=== PATIENT | female | born 1945 | race Caucasian/White ===

== ENCOUNTER 2017-08-11 23:50 | Emergency (ER) | END 2017-08-12 04:19 | disposition home or self-care (01) ==

== ENCOUNTER 2018-07-11 10:15 | Emergency (ER) | payer MEDICARE, OTHER ==
[~2018-07-11] VITALS: Ht 152.4 cm; Wt 63.0 kg
[~2018-07-11 10:15] MED LIST: ATA25 PO; CLON0.2T5 PO; ERGO500013 PO; METO-429 PO; MULT1TAB59 PO; NAPR-985 PO; NIFE30TA23 PO; VALS160T20 PO; ZOLP10TA PO; [UNRECOGNIZED DRUG - CODE]; [UNRECOGNIZED DRUG - CODE] PO
[2018-07-11] MEDS ORDERED: SOD CHLORIDE 0.9% 1,000 ML IV STA ×2 (10:25→10:41)
[2018-07-11] MEDS ORDERED: ONDANSETRON 4 MG INJ IV STA (10:25)
[2018-07-11] MEDS ORDERED: MECLIZINE 12.5 MG TAB PO ONE (10:30)
[2018-07-11 10:43] VITALS: Ht 152.4 cm; Wt 63.0 kg
--- NOTE | 2018-07-11 12:27 | ERD ---
ER Documentation Chief Complaint Chief Complaint dizziness sinec this am HPI This is a 72-year-old female with a past medical history of hypertension coronary artery disease. The patient indicates that she awoke this morning feeling very lightheaded and dizzy. The patient indicated she took her antihypertensive medications last night as well as sleeping medication and believes she could have taken double the dose of her sleeping medication. She denies any chest pain. She denies a headache. She denies any nausea or vomitin g. There is no syncope or near syncope episode. The patient lives with her family who brought her to the emergency department to be further evaluated. She denies any shortness of breath at rest or exertion. ROS All systems reviewed and are negative except as per history of present illness. Medications Home Meds Discontinued Reported Medications Ergocalciferol (Vitamin D2) (VITAMIN D2) 50,000 Unit Capsule, 81989 UNIT PO QSUNDAY, CAP 08/12/17 Multivitamins* (Multivitamins*) 1 Each Tablet, 1 TAB PO DAILY, TAB 08/12/17 Clonazepam (Klonopin) 1 Mg/Tab Tab.rapdis, 1 MG PO HS 12/17/11 Nifedipine* (Nifedipine ER*) 30 Mg Tablet.sa, 30 MG PO DAILY 12/17/11 Hydroxyzine Hcl* (Atarax*) 25 Mg Tab, 25 MG PO TID 12/17/11 Metoprolol Tartrate* (Lopressor*) 50 Mg Tablet, 50 MG PO DAILY 12/17/11 Valsartan* (Diovan*) 160 Mg Tablet, 160 MG PO DAILY 12/17/11 Zolpidem Tartrate* (Ambien*) 10 Mg Tablet, 10 MG PO HS 12/17/11 Clonidine Hcl* (Clonidine Hcl*) 0.2 Mg Tablet, 0.2 MG PO DAILY 12/17/11 Aspirin (Child Aspirin) 81 Mg Tab.chew 10/09/09 Discontinued Scripts Naproxen* (Naprosyn*) 500 Mg Tablet, 500 MG PO BID PRN for PAIN AND/OR IN FLAMMATION, #30 TAB Prov:ROSSY JETER MD 08/12/17 Allergies Allergies: Coded Allergies: No Known Allergy (Unverified , 07/11/18) PMhx/Soc History of Surgery: Yes (L HIP ORIF 05/2012 AT [facility]) Anesthesia Reaction: No Hx Neurological Disorder: No Hx Respiratory Disorders: No Hx Cardiac Disorders: Yes (HTN,angiogram 2014 per family report) Hx Psychiatric Problems: No Hx Miscellaneous Medical Probl: No Hx Alcohol Use: No Hx Substance Use: No Hx Tobacco Use: No Smoking Status: Never smoker Physical Exam Vitals Vital Signs Date Temp Pulse Resp B/P (MAP) Pulse Ox O2 O2 Flow FiO2 Time Delivery Rate 07/11/18 98.1 59 18 93/54 (67) 99 10:43 Physical Exam Constitutional:Well-developed. Well-nourished. HEENT:Normocephalic. Atraumatic.Pupils were equal round reactive to light. Dry mucous membranes.No tonsillar exudates. Neck: No nuchal rigidity. No lymphadenopathy. No posterior cervical spine tenderness or step-offs. Respiratory: Not using accessory muscles of respiration.Lungs were clear to auscultation bilaterally. No rhonchi. No rales. No wheezing. Cardiovascular: Regular rate regular rhythm.No murmurs. No rubs were appreciated.S1, S2 normal. Distal pulses are palpable 2+ bilaterally. GI: Abdomen was soft. Nontender. Non Distended. No pulsatile abdominal masses or bruits. No rebound. No guarding. Bowel sounds were present and normal. Muscle skeletal: Full range of motion of both the upper and lower extremities bilaterally.Normal muscle tone.No assymetrical calf tenderness or swelling. Skin: No petechia, no purpura. No lesions on the palms or the soles of the feet. No maculopapular rash. NEURO: Patient was alert, awake, orientated x3.s She was drowsy but easily arousable. No facial droop. Gait observed and normal with no ataxia.Speech had regular rate and rhythm. No focal neurological deficits. Result Diagram: 07/11/18 1031 07/11/18 1031 Results 24 hrs Laboratory Tests Test 07/11/18 10:31 White Blood Count 7.3 10^3/ul Red Blood Count 3.93 10^6/ul Hemoglobin 11.5 g/dl Hematocrit 35.8 % Mean Corpuscular Volume 91.1 fl Mean Corpuscular Hemoglobin 29.3 pg Mean Corpuscular Hemoglobin Concent 32.1 g/dl Red Cell Distribution Width 12.5 % Platelet Count 288 10^3/UL Mean Platelet Volume 10.5 fl Immature Granulocytes % 0.000 % Neutrophils % 69.6 % Lymphocytes % 22.0 % Monocytes % 6.4 % Eosinophils % 1.6 % Basophils % 0.4 % Nucleated Red Blood Cells % 0.0 /100WBC Immature Granulocytes # 0.000 10^3/ul Neutrophils # 5.1 10^3/ul Lymphocytes # 1.6 10^3/ul Monocytes # 0.5 10^3/ul Eosinophils # 0.1 10^3/ul Basophils # 0.0 10^3/ul Nucleated Red Blood Cells # 0.0 10^3/ul Prothrombin Time 12.5 Sec Prothrombin Time Ratio 1.0 INR International Normalized Ratio 0.92 Activated Partial Thromboplast Time 29.9 Sec Sodium Level 140 mmol/L Potassium Level 4.3 mmol/L Chloride Level 104 mmol/L Carbon Dioxide Level 25 mmol/L Anion Gap 11 Blood Urea Nitrogen 27 mg/dl Creatinine 1.06 mg/dl Est Glomerular Filtrat Rate mL/min mL/min Glucose Level 96 mg/dl Calcium Level 9.6 mg/dl Total Bilirubin 0.4 mg/dl Direct Bilirubin 0.00 mg/dl Indirect Bilirubin 0.4 mg/dl Aspartate Amino Transf (AST/SGOT) 31 IU/L Alanine Aminotransferase (ALT/SGPT) 18 IU/L Alkaline Phosphatase 80 IU/L Troponin I < 0.012 ng/ml Total Protein 7.3 g/dl Albumin 4.2 g/dl Globulin 3.10 g/dl Albumin/Globulin Ratio 1.35 Current Medications Medications Dose Sig/Mauro Start Time Status Last (Trade) Ordered Route PRN Stop Time Admin Dose Reason Admin Sodium 1,000 ml @ Q1H STAT 07/11/18 DC 07/11/18 Chloride 1,000 mls/hr IV 10:25 10:54 07/11/18 11:24 Ondansetron 4 mg ONCE STAT 07/11/18 DC 07/11/18 HCl (Zofran IV 10:25 10:56 Inj) 07/11/18 10:27 Meclizine 25 mg ONCE ONCE 07/11/18 DC 07/11/18 HCl PO 10:30 10:57 (Antivert) 07/11/18 10:31 Sodium 1,000 ml @ Q1H STAT 07/11/18 DC 07/11/18 Chloride 1,000 mls/hr IV 10:41 10:57 07/11/18 11:40 Procedures/[facility] This patient was seen and evaluated by myself. The patient presented to the emergency department complaining of dizziness. My differential diagnosis included but was not limited to hypovolemia, myocardial infarction, pulmonary embolism, hypoglycemia, hypoxia, anemia, vasovagal episode, hypothyroidism, anx iety, peripheral or central vertigo. The patient was placed on a shelter monitor, continuous pulse oximetry and IV access established by nursing staff. The patient was hypotensive. 12 Lead EKG tracing ordered and reviewed by myself showed: Normal sinus rhythm of 61 bpm and no arrhythmia. MA interval normal. QRS duration normal. No ST segment elevation No ST segment depression. No changes consistent with acute ischemia. The patient had received IV fluids for hypertension. She was also given Zofran and Antivert. She was still feeling slightly dizzy and drowsy. I did feel this was an adverse effect from accidentally overdosing on her insomniac medication. In addition a CT scan of the patient's head was obtained which was reviewed by the radiologist and myself and indicate the followin. No acute intracranial hemorrhage or acute territorial infarct. 2. Age related atrophy and moderate small vessel ischemic change as described. 3. Mild bilateral carotid calcification. 4. Old bilateral nasal bone fractures. 5. No significant change The patient's son and grandson were present. I did not feel that the patient was safe to be discharged home. Her blood pressure improved after she received 2 L boluses of normal saline. She was no longer feeling dizzy. She had prerenal azotemia likely secondary to dehydration which was treated with the IV fluids. The patient was discharged home in fair condition. They were instructed to return to the emergency department at any time if there was any worsening of their condition. The patient stated they would follow up with their PCP in the next 24-48 hours to initiate a suitable medication regimen under the care of their PCP as well as to allow their PCP to monitor any drug reactions. The patient was discharged home with prescriptions after they gave informed consent to the new medication. They were also fully informed by myself on the adverse effects and adverse drug interactions in order to provide adequate safeguards to prevent possible adverse reactions to medications. Departure Diagnosis: Primary Impression: Dizziness Additional Impression: Hypotension Hypotension type: unspecified hypotension type Qualified Codes: I95.9 - Hypotension, unspecified Condition: Fair HSADIA MANN MD July 11, 2018 12:27
[2018-07-11] MEDS ORDERED: METO-336 PO (13:06)
[2018-07-11] MEDS ORDERED: AMLO5TAB4 PO (13:06)
[2018-07-11] MEDS ORDERED: LOSA25TA12 PO (13:07)
[2018-07-11] MEDS ORDERED: CLON0.5T14 PO (13:07)
[2018-07-11] MEDS ORDERED: CLON0.3T PO (13:08)
[2018-07-11] MEDS ORDERED: ZOLP10TA PO (13:08)
[2018-07-11 13:29] VITALS: BP 101/64; PULSE 74; RESP 18
== END 2018-07-11 13:30 | disposition home or self-care (01) ==
LOC: E/R 10:15
DX: I95.9 Hypotension, unspecified (principal); R40.2142 Coma scale, eyes open, spontaneous, at arrival to emergency department; R40.2362 Coma scale, best motor response, obeys commands, at arrival to emergency department; R40.2252 Coma scale, best verbal response, oriented, at arrival to emergency department; I10 Essential (primary) hypertension; I25.10 Atherosclerotic heart disease of native coronary artery without angina pectoris; Z79.82 Long term (current) use of aspirin; Z98.61 Coronary angioplasty status
CPT/HCPCS: 70450; 80053; 84484; 85025; 85610; 85730; J2405; J7030; 93005; 96374

== ENCOUNTER 2018-08-14 12:35 | Inpatient (IN) | payer MEDICARE, OTHER ==
[~2018-08-14] VITALS: Ht 157.5 cm; Wt 62.1 kg
[2018-08-14] VITALS (17 sets, daily range): BP systolic 62–112; BP diastolic 41–75; PULSE 121–150; RESP 17–24; Ht 157.5 cm; Wt 62.1 kg
[~2018-08-14 12:35] MED LIST changes: +AMLO5TAB4 PO; -ATA25 PO; -CLON0.2T5 PO; +CLON0.3T PO; +CLON0.5T14 PO; -ERGO500013 PO; +LOSA25TA12 PO; +METO-336 PO; -METO-429 PO; -MULT1TAB59 PO; -NAPR-985 PO; -NIFE30TA23 PO; -VALS160T20 PO; -[UNRECOGNIZED DRUG - CODE]; -[UNRECOGNIZED DRUG - CODE] PO
[2018-08-14] MEDS ORDERED: SOD CHLORIDE 0.9% 1,000 ML IV STA (13:13)
[2018-08-14] MEDS ORDERED: ONDANSETRON 4 MG INJ IV STA (13:13)
--- NOTE | 2018-08-14 13:24 | ERD ---
ER Documentation Chief Complaint Chief Complaint syncope after vomiting today HPI 72-year-old female history of hypertension, hyperlipidemia, paroxysmal atrial fibrillation, left bundle branch block and chronic chest pain presents to the ED via rescue ambulance for evaluation of nausea, vomiting, diarrhea and syncope. Patient was in her usual state of health until this morning when she began to experience nausea and had 3 episodes of nonbloody, nonbilious emesis and 2 episodes of watery, nonmucoid, nonbloody diarrhea. Patient with a 5 to 6-second episode of syncope after each emesis witnessed by family. No seizure activity. Denies chest pain, palpitations or shortness of breath. No abdominal pain or back pain. Denies leg pain or swelling. No cough or hemoptysis. Complains of generalized weakness and mild, generalized, pressure-like headache but no neck pain, focal weakness or numbness. Denies anorexia, weight loss, night sweats, fevers or chills. ROS All systems reviewed and are negative except as per history of present illness. Medications Home Meds Active Scripts Metoprolol Succinate* (Toprol XL*) 100 Mg Tab.sr.24h, 100 MG PO BID, #60 TAB Prov:LISA VENEGAS 08/18/18 Lisinopril* (Lisinopril*) 5 Mg Tablet, 5 MG PO DAILY, #60 TAB Prov:LISA VENEGAS 08/18/18 Dronedarone Hydrochloride* (Multaq*) 400 Mg Tablet, 400 MG PO BID WITH MEALS, #60 TAB Prov:LISA VENEGAS 08/18/18 Apixaban* (Eliquis*) 5 Mg Tablet, 2.5 MG PO BID, #60 TAB 1 Refill Prov:LISA VENEGAS 08/18/18 Reported Medications Zolpidem Tartrate* (Ambien*) 10 Mg Tablet, 10 MG PO QHS PRN for INSOMNIA, TAB 07/11/18 Clonazepam* (Clonazepam*) 0.5 Mg Tablet, 0.5 MG PO QHS PRN for ANXIETY, TAB 07/11/18 Discontinued Reported Medications Clonidine Hcl* (Clonidine Hcl*) 0.3 Mg Tablet, 0.3 MG PO BID, TAB 07/11/18 Losartan Potassium* (Losartan Potassium*) 25 Mg Tablet, 12.5 MG PO DAILY, TAB 07/11/18 Metoprolol Succinate* (Toprol XL*) 100 Mg Tab.sr.24h, 100 MG PO DAILY, #30 TAB 07/11/18 Amlodipine Besylate* (Norvasc*) 5 Mg Tablet, 5 MG PO DAILY, TAB 07/11/18 Allergies Allergies: Coded Allergies: No Known Allergy (Unverified , 08/14/18) PMhx/Soc Reviewed History of Surgery: Yes (L HIP ORIF 05/2012 AT [facility]) Anesthesia Reaction: No Hx Neurological Disorder: No Hx Respiratory Disorders: No Hx Cardiac Disorders: Yes (HTN,angiogram 2013 per family report) Hx Psychiatric Problems: No Hx Miscellaneous Medical Probl: No Hx Alcohol Use: No Hx Substance Use: No Hx Tobacco Use: No FmHx Mother and father both of [place] in her late 60s. Brother:Colon [place] Physical Exam Vitals Temp: 97.6. Pulse: 125. Respirations: 20. Blood pressure: 156/92. O2 saturation 98%. Physical Exam GENERAL: Alert. Elderly, ill-appearing in moderate distress. SKIN: Warm, dry, no rash, No petechiae. No ecchymoses or bruising. HEAD: Atraumatic NECK: Supple, nontender, full range of motion. No lymphadenopathy or masses. No JVD. Carotids are 2+ bilaterally without bruits. EYES: Pupils are equal, round and reactive to light, extraocular movements are intact, Conjunctiva, not injected, sclera anicteric. ENT: Mucous membranes are moist. Pharynx is clear without erythema or exudate. CARDIOVASCULAR: Regular rate and rhythm, S1, S2, No murmurs, rubs or gallops. No peripheral edema Pulses are 4+ in all extremities. RESPIRATORY: Breath sounds are equal bilaterally. No rales, rhonchi or wheezes. CHEST WALL: No tenderness or deformity. No ecchymosis or bruising GASTROINTESTINAL: Bowel sounds present, nondistended. Soft, nontender, no rebound or guarding. No masses or abnormal pulsations. BACK: No spinal tenderness or paraspinal muscle spasm. No costovertebral angle tenderness. MUSCULOSKELETAL: Normal ROM, no deformity. No calf swelling or tenderness, NEUROLOGIC: Alert and oriented. CN II-XII grossly intact. Normal Speech. Motor and sensory equal bilaterally.No focal neurological deficit observed. LYMPHATICS: No lymphadenopathy or lymphedema. PSYCHIATRIC: Cooperative. Appropriate mood and affect. Result Diagram: 7/3/19 0616 Results 24 hrs Laboratory Tests Test 08/14/18 13:05 08/14/18 13:21 Prothrombin Time 12.6 Sec Prothrombin Time Ratio 1.0 INR International Normalized Ratio 0.93 Activated Partial Thromboplast Time 27.1 Sec White Blood Count 9.1 10^3/ul Red Blood Count 3.88 10^6/ul Hemoglobin 11.4 g/dl Hematocrit 33.9 % Mean Corpuscular Volume 87.4 fl Mean Corpuscular Hemoglobin 29.4 pg Mean Corpuscular Hemoglobin Concent 33.6 g/dl Red Cell Distribution Width 12.4 % Platelet Count 315 10^3/UL Mean Platelet Volume 10.6 fl Immature Granulocytes % 0.200 % Neutrophils % 53.1 % Lymphocytes % 37.8 % Monocytes % 6.4 % Eosinophils % 1.8 % Basophils % 0.7 % Nucleated Red Blood Cells % 0.0 /100WBC Immature Granulocytes # 0.020 10^3/ul Neutrophils # 4.9 10^3/ul Lymphocytes # 3.4 10^3/ul Monocytes # 0.6 10^3/ul Eosinophils # 0.2 10^3/ul Basophils # 0.1 10^3/ul Nucleated Red Blood Cells # 0.0 10^3/ul Sodium Level 141 mmol/L Potassium Level 4.3 mmol/L Chloride Level 104 mmol/L Carbon Dioxide Level 25 mmol/L Anion Gap 12 Blood Urea Nitrogen 19 mg/dl Creatinine 0.84 mg/dl Est Glomerular Filtrat Rate mL/min mL/min Glucose Level 159 mg/dl Calcium Level 9.9 mg/dl Magnesium Level 1.8 mg/dl Total Bilirubin 0.4 mg/dl Direct Bilirubin 0.00 mg/dl Indirect Bilirubin 0.4 mg/dl Aspartate Amino Transf (AST/SGOT) 39 IU/L Alanine Aminotransferase (ALT/SGPT) 28 IU/L Alkaline Phosphatase 79 IU/L Troponin I < 0.012 ng/ml Total Protein 7.5 g/dl Albumin 4.4 g/dl Globulin 3.10 g/dl Albumin/Globulin Ratio 1.41 Digoxin Level < 0.4 ng/ml Current Medications Medications Dose Sig/Mauro Start Time Status Last (Trade) Ordered Route PRN Stop Time Admin Dose Reason Admin Sodium 1,000 ml @ Q1H STAT 08/14/18 DC 08/14/18 Chloride 1,000 mls/hr IV 13:13 13:13 08/14/18 14:12 Ondansetron 4 mg ONCE STAT 08/14/18 DC 08/14/18 HCl (Zofran IV 13:13 13:13 Inj) 08/14/18 13:16 DC ONCE ONCE 08/14/18 DC 08/14/18 Miscellaneous previous XX 15:30 15:30 hepa... 08/14/18 15:31 Information (* Miscellaneous Pharmacy Order) Heparin 4,000 unit ONCE ONCE 08/14/18 DC 08/14/18 Sodium IV 15:30 16:15 (Porcine) 08/14/18 15:31 (Heparin (1000 Units/ml)) Heparin 4,000 unit PER PROTOCOL 08/14/18 DC Sodium PRN IV 15:30 08/16/18 (Porcine) aPTT<47 16:53 (Heparin (1000 Units/ml)) Heparin 250 ml @ 8 PER 08/14/18 DC 08/16/18 Sodium mls/hr PROTOCOL IV 15:30 08/16/18 05:36 (Porcine) 16:53 Procedures/[facility] DOCUMENTS REVIEWED: ED nurse, prior ED and prior records. EKG: Time: 13:15. Atrial fibrillation with occasional aberrantly conducted complexes. Left bundle branch block. No acute ST elevation or depression. T wave inversions in 1, aVL V5 and V6. My Interpretation Rhythm strip interpretation: Time: 13: 21. 4 seconds of asystole followed by return to A. fib at a rate of 105. Indication: Syncope IMAGING: Chest AP portable. Cardiac silhouette is borderline enlarged. No effusions or infiltrates. No mediastinal widening. No abnormalities of the bony thorax. My interpretation MEDICAL DECISION MAKIN-year-old female history of hypertension, hyperlipidemia, paroxysmal atrial fibrillation, left bundle branch block and chronic chest pain presents to the ED via rescue ambulance for evaluation of nausea, vomiting, diarrhea and syncope. CBC to evaluate for anemia, leukocytosis and thrombocytopenia shows borderline anemia. Chemistry to evaluate for electrolyte abnormalities, renal insufficiency and hyperglycemia is unremarkable. EKG reveals left bundle branch block, atrial fibrillation with rapid ventricular response but no acute ischemic changes. troponin is not elevated. Chest x-ray is unremarkable for CHF or pneumonia. CT of the brain to evaluate for hemorrhage, infarct, mass and hydrocephalus is remarkable for chronic ischemic changes but no acute disease. In the emergency department patient had several episodes of syncope which were accompanied by periods of bradycardia and asystole Likely secondary sick sinus syndrome. Transdermal pacing patches are applied. Urgent cardiology consultation obtained in the emergency department patient will likely require urgent pacemaker placement. Admit to ICU for further evaluation and management. CALLS/CONSULTS: Time: 13:31, Cardiology, Dr. Huerta. PATIENT CARE TRANSITIONED: Time: Dr. Belcher. CRITICAL CARE TIME: Due to the high probability of sudden clinically significant hemodynamic, cardiovascular and neurologic deterioration, this patient with syncope and cardiac dysrhythmia required multiple, frequent reevaluations of vital signs and response to therapy. Additional critical care time was spent in obtaining supplemental history from family, review of prior medical records, interpretation of relevant clinical data including labs and imaging studies as well as consultation with cardiology and arranging for admission and ongoing care at the intensive care unit. TOTAL CRITICAL CARE TIME: 35 minutes not including other separately reportable procedures. Counseled patient and family regarding diagnosis, diagnostic results and plan fo r admission. Departure Diagnosis: Primary Impression: Syncope Syncope type: unspecified Qualified Codes: R55 - Syncope and collapse Additional Impressions: Sick sinus syndrome Paroxysmal atrial fibrillation with rapid ventricular response Hypertension Hypertension type: unspecified Qualified Codes: I10 - Essential (primary) hypertension Condition: Critical TINO JACKSON MD Aug 14, 2018 13:24
--- NOTE | 2018-08-14 15:17 | CONS ---
Assessment/Plan Assessment/Plan Hospital Course (Demo Recall) 1. Recurrent syncope 2. Sick sinus with tachycardia bradycardia with episode of long pause as well as tachycardia 3. Nausea vomiting 4. Hypertension 5. History of possible coronary artery disease detail is not clear 6. Abnormal EKG with left bundle branch block Recommendations: Start the patient on heparin drip for now Family to bring all the medication list to evaluate and adjust. Digoxin level will be checked to rule out this toxicity given her nausea vomiting and pauses that she has had Electrolytes will be checked intermittently cardiac enzyme will be repeated. Rule out for myocardial infarction\ Echocardiogram has been ordered thyroid function test will be checked If no reversible causes is found patient may need to have a permanent pacemaker placement. For now closely monitor and have the transcutaneous pacemaker available to if needed Hold off on beta-ricky AV rica agent blockers for now Thank you for his referral. We will continue to follow along with you BERENICE DHALIWAL MD [facility] Consultation Date/Type/Reason Admit Date/Time Date of Consultation: Aug 14, 2018 Type of Consult Cardiology Reason for Consultation SYNCOPE AFIB TACHYBRADY Requesting Provider: TINO JACKSON MD Date/Time of Note DATE: 08/14/18 TIME: 15:11 Hx of Present Illness Interventional cardiology consultation note Chief complaint: Syncope Reason for consult: Syncope tachybradycardia atrial fibrillation History of present illness: Thank you for this referral. History was obtained from the patient was a very poor historian discussion with her son and discussion with multiple physician staff and review of the old chart This is a pleasant 72-year-old [place] female with history of hypertension apparently on multiple medication who has had recurrent nausea vomiting followed by episode of unresponsiveness and syncope. She was brought into the emergency room with nausea emergency had episode of nausea vomiting followed by a systolic episode. Patient denies any chest pain or pressure to me denies any palpitation to me. Appears to have started to have symptoms starting today. Although patient and family are poor historian. Allergies: No known drug allergies Medications family does not know what medication she takes at this point Family history: No reported history of coronary artery disease Social history: Does not smoke or drink Past medical history: Hypertension, questionable history of coronary artery disease Review of system: Patient denies all others except for above-mentioned Past Medical History Home Meds Reported Medications Zolpidem Tartrate* (Ambien*) 10 Mg Tablet, 10 MG PO QHS PRN for INSOMNIA, TAB 07/11/18 Clonidine Hcl* (Clonidine Hcl*) 0.3 Mg Tablet, 0.3 MG PO BID, TAB 07/11/18 Losartan Potassium* (Losartan Potassium*) 25 Mg Tablet, 12.5 MG PO DAILY, TAB 07/11/18 Clonazepam* (Clonazepam*) 0.5 Mg Tablet, 0.5 MG PO QHS PRN for ANXIETY, TAB 07/11/18 Metoprolol Succinate* (Toprol XL*) 100 Mg Tab.sr.24h, 100 MG PO DAILY, #30 TAB 07/11/18 Amlodipine Besylate* (Norvasc*) 5 Mg Tablet, 5 MG PO DAILY, TAB 07/11/18 Allergies: Coded Allergies: No Known Allergy (Unverified , 08/14/18) Social History Smoking Status: Current every day smoker Exam/Review of Systems Vital Signs Vitals Vital Signs Date Temp Pulse Resp B/P (MAP) Pulse Ox O2 O2 Flow FiO2 Time Delivery Rate 08/14/18 104 21 129/66 99 Non 13:55 (87) Rebreather 08/14/18 2.0 13:30 08/14/18 97.6 12:51 Exam Exam General: Elderly female no acute distress HEENT: NC/AT. pupils are equal. round. NECK: no stridor. CV: Irregularly irregular. systolic murmur; no gallop or rubs. PULM: no wheezing or rhonchi. GI: SOFT, NT, ND, no rebound or guarding Extremity: trace B/L LE edema. no clubbing. neuro: awake and alert, OX2. Psych: calm and pleasant rectal: deferred EKG was personally reviewed showed atrial fibrillation rapid ventricular r esponse left bundle branch block Chest x-ray shows: Stable low lung volumes and appearance of the cardiac silhouette. There is a defibrillator pad projected over the left hemithorax. No pneumothorax or large pleural effusions. There are aortic knob calcifications. Labs Result Diagram: 08/14/18 1321 08/14/18 1321 Results 24hrs Laboratory Tests Test 08/14/18 13:21 White Blood Count 9.1 # Red Blood Count 3.88 L Hemoglobin 11.4 L Hematocrit 33.9 L Mean Corpuscular Volume 87.4 Mean Corpuscular Hemoglobin 29.4 Mean Corpuscular Hemoglobin Concent 33.6 Red Cell Distribution Width 12.4 Platelet Count 315 Mean Platelet Volume 10.6 H Immature Granulocytes % 0.200 Neutrophils % 53.1 Lymphocytes % 37.8 Monocytes % 6.4 Eosinophils % 1.8 Basophils % 0.7 Nucleated Red Blood Cells % 0.0 Immature Granulocytes # 0.020 Neutrophils # 4.9 Lymphocytes # 3.4 H Monocytes # 0.6 Eosinophils # 0.2 Basophils # 0.1 Nucleated Red Blood Cells # 0.0 Sodium Level 141 Potassium Level 4.3 Chloride Level 104 Carbon Dioxide Level 25 Anion Gap 12 Blood Urea Nitrogen 19 Creatinine 0.84 Est Glomerular Filtrat Rate mL/min Glucose Level 159 Calcium Level 9.9 Magnesium Level 1.8 Total Bilirubin 0.4 Direct Bilirubin 0.00 Indirect Bilirubin 0.4 Aspartate Amino Transf (AST/SGOT) 39 Alanine Aminotransferase (ALT/SGPT) 28 Alkaline Phosphatase 79 Troponin I < 0.012 Total Protein 7.5 Albumin 4.4 Globulin 3.10 Albumin/Globulin Ratio 1.41 BERENICE DHALIWAL MD Aug 14, 2018 15:17
[2018-08-14] MEDS ORDERED: HEPARIN 1000 UNITS/ML 10 ML INJ IV PRN (15:30)
[2018-08-14] MEDS ORDERED: HEPARIN 1000 UNITS/ML 10 ML INJ IV ONE (15:30)
--- NOTE | 2018-08-14 15:33 | HP ---
Date/Time of Note Date/Time of Note DATE: 08/14/18 TIME: 15:27 Assessment/Plan VTE Prophylaxis SCD applied (from Nsg): Yes Pharmacological prophylaxis: heparin Lines/Catheters IV Catheter Type (from Nrsg): Saline Lock Assessment/Plan Hospital Course Appeasr uncomfortable Somnulent but arousable Irreg irreg, tachy Rhonchi, phlegm Breathing comfortably Abdomen is soft, nt, nd Ext warm no edema A/P: 72 yo female with h/o hypertension and LBBB who presents with nausea syndrome complicated by syncope with pauses on telemetry Syncoep with A FIb and pauses: - Hold metoprlol - AC per Dr Huerta - Pacemaker pads Nausea: - not clear to me why. Perhaps a GI illness. Will scan head as stroke is a consideration - Observe - Sympomatic care Hypertension: - Hold home meds Result Diagram: 08/14/18 1321 08/14/18 1321 Results 24hrs Laboratory Tests Test 08/14/18 13:05 08/14/18 13:21 Prothrombin Time 12.6 Prothrombin Time Ratio 1.0 INR International Normalized Ratio 0.93 Activated Partial Thromboplast Time 27.1 White Blood Count 9.1 # Red Blood Count 3.88 L Hemoglobin 11.4 L Hematocrit 33.9 L Mean Corpuscular Volume 87.4 Mean Corpuscular Hemoglobin 29.4 Mean Corpuscular Hemoglobin Concent 33.6 Red Cell Distribution Width 12.4 Platelet Count 315 Mean Platelet Volume 10.6 H Immature Granulocytes % 0.200 Neutrophils % 53.1 Lymphocytes % 37.8 Monocytes % 6.4 Eosinophils % 1.8 Basophils % 0.7 Nucleated Red Blood Cells % 0.0 Immature Granulocytes # 0.020 Neutrophils # 4.9 Lymphocytes # 3.4 H Monocytes # 0.6 Eosinophils # 0.2 Basophils # 0.1 Nucleated Red Blood Cells # 0.0 Sodium Level 141 Potassium Level 4.3 Chloride Level 104 Carbon Dioxide Level 25 Anion Gap 12 Blood Urea Nitrogen 19 Creatinine 0.84 Est Glomerular Filtrat Rate mL/min Glucose Level 159 Calcium Level 9.9 Magnesium Level 1.8 Total Bilirubin 0.4 Direct Bilirubin 0.00 Indirect Bilirubin 0.4 Aspartate Amino Transf (AST/SGOT) 39 Alanine Aminotransferase (ALT/SGPT) 28 Alkaline Phosphatase 79 Troponin I < 0.012 Total Protein 7.5 Albumin 4.4 Globulin 3.10 Albumin/Globulin Ratio 1.41 HPI/ROS Admit Date/Time Admit Date/Time Hx of Present Illness 72 yo female with h/o hypertension and LBBB who presents wtih nausea and repeated syncope Patient in usual state of health until yesterday. She has developed severe nausea. Frequent emiesis. Family says she syncopizes for a few seconds each time she throws up. She denies any diarrhea. No fevers/chills. Just nausea. No headache. No chest pain. Clearly coughing with phlegm but denies SOB ROS Constitutional: no complaints, improved Eyes: no complaints ENT: no complaints Respiratory: no complaints Cardiovascular: no complaints Gastrointestinal: no complaints Genitourinary: no complaints Musculoskeletal: no complaints Skin: no complaints Neurologic: no complaints Endocrine: no complaints Lymphatic: no complaints Psychological: no complaints, nl mood/affect Immunologic: no complaints PMH/Family/Social Past Medical History Medical History: no pertinent history, hypertension Medications Current Medications Miscellaneous Information (* Miscellaneous Pharmacy Order) DC previous hepa... ONCE ONCE XX ; Start 08/14/18 at 15:30; Stop 08/14/18 at 15:31 Heparin Sodium (Porcine) (Heparin (1000 Units/ml)) 4,000 unit ONCE ONCE IV ; Start 08/14/18 at 15:30; Stop 08/14/18 at 15:31 Heparin Sodium (Porcine) (Heparin (1000 Units/ml)) 4,000 unit PER PROTOCOL PRN IV aPTT<47; Start 08/14/18 at 15:30; Status UNV Heparin Sodium (Porcine) 250 ml @ 8 mls/hr PER PROTOCOL IV ; Start 08/14/18 at 15:30 Coded Allergies: No Known Allergy (Unverified , 08/14/18) Past Surgical History Past Surgical Hx: no surgical history Family History Significant Family History: no pertinent family hx Social History Alcohol Use: none Smoking Status: Current every day smoker Drug Use: none Exam/Review of Systems Vital Signs Vitals Vital Signs Date Temp Pulse Resp B/P (MAP) Pulse Ox O2 O2 Flow FiO2 Time Delivery Rate 08/14/18 104 21 129/66 99 Non 13:55 (87) Rebreather 08/14/18 2.0 13:30 08/14/18 97.6 12:51 PHUONG RIZVI MD Aug 14, 2018 15:33
[2018-08-14] MEDS ORDERED: NACL 0.9% 3 ML SYG IV SCH (16:00)
[2018-08-14] MEDS: FAMOTIDINE 20 MG INJ IV SCH (16:12)
[2018-08-14] MEDS: HEPARIN 25000 UNITS/250 ML 250 ML IV SCH (16:18)
[2018-08-14] MEDS: METOCLOPRAMIDE 10 MG INJ IV PRN (18:32)
[2018-08-14] MEDS ORDERED: SOD CHLORIDE 0.9% 1,000 ML IV ONE (22:30)
[2018-08-14] MEDS: ZOLPIDEM 5 MG TAB PO PRN (22:43)
[2018-08-15] VITALS (43 sets, daily range): BP systolic 74–160; BP diastolic 44–110; PULSE 39–143; RESP 9–28
[2018-08-15] MEDS ORDERED: SOD CHLORIDE 0.9% 1,000 ML IV ONE (01:00)
[2018-08-15] MEDS: FAMOTIDINE 20 MG INJ IV SCH (09:29)
[2018-08-15] MEDS ORDERED: DILTIAZEM 25 MG INJ ONE (11:27)
[2018-08-15] MEDS: ONDANSETRON 4 MG INJ IV PRN ×2 (11:29→20:17)
--- NOTE | 2018-08-15 11:29 | RADRPT ---
Echocardiogram Report Patient Name: KRISTI WILDEPatient ID: [id number] : 1945 (72y 11m)Study Date: 08/14/2018 3:26:05 PM Gender: FAccession #: [id number] Tech: Rebecca Workman RDCS Location: ER Ref.Physician: BERENICE HUERTA Height(Cm): BSA: Weight(Kg): Quality: Technically Difficult StudyOrder Physician: BERENICE HUERTA Account #: Procedures: Echocardiographic Report: Transthoracic echocardiogram with complete 2D, M-Mode, and doppler examination. Indications: Syncope. Measurements: 2D/M Mode Doppler Measurement Value Normal Range Measurement Value Normal Range LVIDd 2D 3.0 [ 3.8 - 5.2 ] cm AV Peak Vinayak 1.6 [ 100.0 - 170.0 ] cm/se c LVIDs 2D 2.0 [ 2.2 - 3.5 ] cm AV Peak PG 10.0 [ 2.0 - 9.0 ] mmHg LVPWd 2D 0.9 [ 0.6 - 0.9 ] cm LVOT Peak Vinayak 0.9 [ 70.0 - 110.0 ] cm/sec IVSd 2D 0.9 [ 0.6 - 0.9 ] cm LVOT Peak PG 4.0 [ 2.0 - 6.0 ] mmHg AoR Diam 2D 2.8 [ 2.3 - 3.1 ] cm MV E Peak Vinayak 1.2 [ 60.0 - 130.0 ] cm/sec EDV 2D 36.2 [ 46.0 - 106.0 ] ml MV A Peak Vinayak 0.4 [ 100.0 - 120.0 ] cm/se c ESV 2D 12.4 [ 14.0 - 42.0 ] ml MV E/A 3.0 [ 0.8 - 1.5 ] ratio EF 2D 65.7 [ 54.0 - 74.0 ] percent MV PHT 58.0 [ 20.0 - 100.0 ] msec LA Dimen 2D 3.4 [ 2.7 - 3.8 ] cm MV Decel Time 197 [ 104 - 258 ] msec MV Decel [place] 6 Lat E` Vinayak 0.1 [ 10.0 - 15.0 ] cm/sec Lateral E/E` 12.7 [ 1.0 - 2.0 ] ratio Med E` Vinayak 0.1 cm/sec MV E/A 3.0 [ 0.8 - 1.5 ] ratio MVA PHT 3.8 [ 2.0 - 4.0 ] cm2 Findings: Left Ventricle: Normal left ventricular systolic function. Normal left ventricular cavity size. Normal left ventricular wall thickness. Ejection fraction is visually estimated at 56-60 %. Tissue Doppler/Mitral Doppler indices are within normal limits. Right Ventricle: Normal right ventricular size. Normal right ventricular systolic function. Left Atrium: There is mild enlargement of left atrium. Right Atrium: The right atrium is normal in size. Atrial Septum: Normal atrial septum. Ventricular septum: Normal/intact ventricular septum. Mitral Valve: Mild mitral annular calcification. Mild mitral valve regurgitation. Aortic Valve: Normal appearance of the aortic valve. Aortic valve not well visualized. Aortic sclerosis without significant stenosis. No aortic regurgitation. Tricuspid Valve: Normal appearance and function of the tricuspid valve with trace physiologic regurgitation. Tricuspid valve not well visualized. Pulmonic Valve: Pulmonic valve not well visualized. No evidence of pulmonic regurgitation. Pericardium: Normal pericardium with no significant pericardial effusion. Aorta: Normal aortic root. IVC: Normal size and normal respiratory collapse consistent with normal right atrial pressure. Conclusions: There is mild enlargement of left atrium. Normal left ventricular systolic function. Normal left ventricular cavity size. Normal left ventricular wall thickness. Ejection fraction is visually estimated at 56-60 %. Tissue Doppler/Mitral Doppler indices are within normal limits. Mild mitral annular calcification. Mild mitral valve regurgitation. Normal appearance and function of the tricuspid valve with trace physiologic regurgitation. Tricuspid valve not well visualized. Normal appearance of the aortic valve. Aortic valve not well visualized. Aortic sclerosis without significant stenosis. No aortic regurgitation. n. Normal size and normal respiratory collapse consistent with normal right atrial pressure. Electronically Signed By: Berenice Huerta 2018-08-15 11:28:35 PDT
[2018-08-15] MEDS ORDERED: MAGNESIUM SULFATE 2 GM/50 ML 50 ML IVPB ONE ×2 (11:30→12:00)
[2018-08-15] MEDS ORDERED: DILTIAZEM 25 MG INJ IV ONE (11:30)
--- NOTE | 2018-08-15 11:58 | CONS ---
Consult Date/Type/Reason Admit Date/Time Aug 14, 2018 at 15:40 Initial Consult Date 08/14/18 Type of Consultation: cv Requesting Provider: TINO JACKSON MD Date/Time of Note DATE: 08/15/18 TIME: 11:54 Objective Vitals Vital Signs Date Temp Pulse Resp B/P (MAP) Pulse Ox O2 O2 Flow FiO2 Time Delivery Rate 08/15/18 98.1 108 20 124/110 96 Nasal 2.0 08:00 (115) Cannula Intake and Output 08/14/18 08/14/18 08/15/18 1515:00 23:00 07:00 IntakeIntake Total 1000 ml 48 ml 444 ml OutputOutput Total 205 ml 220 ml BalanceBalance 1000 ml -157 ml 224 ml Results/Medications Result Diagram: 08/15/18 0643 08/15/18 0643 Results 24 hrs Laboratory Tests Test 08/14/18 13:05 08/14/18 13:21 08/14/18 17:00 08/14/18 20:11 Prothrombin Time 12.6 Prothrombin Time 1.0 Ratio INR International 0.93 Normalized Ratio Activated 27.1 Partial Thromboplast Time White Blood Count 9.1 # 15.1 #H Red Blood Count 3.88 L 4.23 Hemoglobin 11.4 L 12.4 Hematocrit 33.9 L 36.5 L Mean Corpuscular 87.4 86.3 Volume Mean Corpuscular 29.4 29.3 Hemoglobin Mean Corpuscular 33.6 34.0 Hemoglobin Concent Red Cell 12.4 12.5 Distribution Width Platelet Count 315 279 Mean Platelet Volume 10.6 H 10.5 H Immature 0.200 0.300 Granulocytes % Neutrophils % 53.1 84.3 H Lymphocytes % 37.8 7.6 L Monocytes % 6.4 7.6 Eosinophils % 1.8 0.0 Basophils % 0.7 0.2 Nucleated Red Blood 0.0 0.0 Cells % Immature 0.020 0.050 H Granulocytes # Neutrophils # 4.9 12.7 H Lymphocytes # 3.4 H 1.2 Monocytes # 0.6 1.2 H Eosinophils # 0.2 0.0 Basophils # 0.1 0.0 Nucleated Red Blood 0.0 0.0 Cells # Sodium Level 141 140 Potassium Level 4.3 4.2 Chloride Level 104 104 Carbon Dioxide Level 25 24 Anion Gap 12 12 Blood Urea Nitrogen 19 16 Creatinine 0.84 0.77 Est Glomerular Filtrat Rate mL/min Glucose Level 159 135 Calcium Level 9.9 9.5 Magnesium Level 1.8 Total Bilirubin 0.4 0.7 Direct Bilirubin 0.00 0.00 Indirect Bilirubin 0.4 0.7 Aspartate Amino 39 94 H Transf (AST/SGOT) Alanine 28 66 Aminotransferase (AL T/SGPT) Alkaline Phosphatase 79 92 Troponin I < 0.012 < 0.012 Total Protein 7.5 7.0 Albumin 4.4 4.1 Globulin 3.10 2.90 Albumin/Globulin 1.41 1.41 Ratio Digoxin Level < 0.4 L Urine Color YELLOW Urine Clarity CLEAR Urine pH 6.0 Urine Specific 1.013 [place] Urine Ketones NEGATIVE Urine Nitrite NEGATIVE Urine Bilirubin NEGATIVE Urine Urobilinogen NEGATIVE Urine Leukocyte NEGATIVE Esterase Urine Hemoglobin NEGATIVE Urine Glucose NEGATIVE Urine Total Protein NEGATIVE Creatine Kinase 61 Creatine Kinase 1.9 Index Creatinine Kinase MB 1.16 (Mass) Test 08/14/18 22:34 08/15/18 06:43 Activated 67.8 H 107.7 *H Partial Thromboplast Time White Blood Count 10.6 # Red Blood Count 3.79 L Hemoglobin 11.2 L Hematocrit 33.3 L Mean Corpuscular 87.9 Volume Mean Corpuscular 29.6 Hemoglobin Mean Corpuscular 33.6 Hemoglobin Concent Red Cell 12.5 Distribution Width Platelet Count 272 Mean Platelet Volume 10.5 H Immature 0.500 H Granulocytes % Neutrophils % 70.1 Lymphocytes % 20.0 Monocytes % 8.7 Eosinophils % 0.2 Basophils % 0.5 Nucleated Red Blood 0.0 Cells % Immature 0.050 H Granulocytes # Neutrophils # 7.5 Lymphocytes # 2.1 Monocytes # 0.9 Eosinophils # 0.0 Basophils # 0.1 Nucleated Red Blood 0.0 Cells # Sodium Level 142 Potassium Level 4.5 Chloride Level 107 Carbon Dioxide Level 26 Anion Gap 9 Blood Urea Nitrogen 16 Creatinine 0.91 Est Glomerular Filtrat Rate mL/min Glucose Level 111 Hemoglobin A1c 5.3 Calcium Level 8.8 Magnesium Level 1.6 L Total Bilirubin 0.8 Direct Bilirubin 0.00 Indirect Bilirubin 0.8 Aspartate Amino 36 Transf (AST/SGOT) Alanine 46 Aminotransferase (AL T/SGPT) Alkaline Phosphatase 66 Creatine Kinase 42 Creatine Kinase 3.0 Index Creatinine Kinase MB 1.28 (Mass) Troponin I 0.031 B-Type Natriuretic 4460 H Peptide Total Protein 5.9 #L Albumin 3.3 Globulin 2.60 Albumin/Globulin 1.26 Ratio Thyroid Stimulating 1.400 Hormone (TSH) Free Thyroxine 1.43 Digoxin Level < 0.4 L Home Meds Reported Medications Zolpidem Tartrate* (Ambien*) 10 Mg Tablet, 10 MG PO QHS PRN for INSOMNIA, TAB 07/11/18 Clonidine Hcl* (Clonidine Hcl*) 0.3 Mg Tablet, 0.3 MG PO BID, TAB 07/11/18 Losartan Potassium* (Losartan Potassium*) 25 Mg Tablet, 12.5 MG PO DAILY, TAB 07/11/18 Clonazepam* (Clonazepam*) 0.5 Mg Tablet, 0.5 MG PO QHS PRN for ANXIETY, TAB 07/11/18 Metoprolol Succinate* (Toprol XL*) 100 Mg Tab.sr.24h, 100 MG PO DAILY, #30 TAB 07/11/18 Amlodipine Besylate* (Norvasc*) 5 Mg Tablet, 5 MG PO DAILY, TAB 07/11/18 Medications Current Medications Heparin Sodium (Porcine) (Heparin (1000 Units/ml)) 4,000 unit PER PROTOCOL PRN IV aPTT<47; Start 08/14/18 at 15:30 Heparin Sodium (Porcine) 250 ml @ 8 mls/hr PER PROTOCOL IV Last administered on 08/14/18at 16:18; Admin Dose 8 MLS/HR; Start 08/14/18 at 15:30 IV Flush (NS 3 ml) 3 ml PER PROTOCOL IV ; Start 08/14/18 at 16:00 Ondansetron HCl (Zofran Inj) 4 mg Q6H PRN IV NAUSEA/VOMITING Last administered on 08/15/18at 11:29; Admin Dose 4 MG; Start 08/14/18 at 16:00 Metoclopramide HCl (Reglan) 10 mg Q6H PRN IV NAUSEA/VOMITING Last administered on 08/14/18at 18:32; Admin Dose 10 MG; Start 08/14/18 at 16:00 Oxycodone/ Acetaminophen (Percocet (5/ 325)) 2 tab Q6H PRN PO .SEVERE PAIN 7- 10; Start 08/14/18 at 16:00 Famotidine (Pepcid Iv) 20 mg DAILY IV Last administered on 08/15/18at 09:29; Admin Dose 20 MG; Start 08/14/18 at 16:00 Zolpidem Tartrate (Ambien) 10 mg HS PRN PO INSOMNIA Last administered on 08/14/18at 22:43; Admin Dose 10 MG; Start 08/14/18 at 22:30 Sodium Chloride 1,000 ml @ 70 mls/hr [id number] ONCE IV Last administered on 08/15/18at 00:36; Admin Dose 70 MLS/HR; Start 08/15/18 at 01:00; Stop 08/15/18 at 15:17 Magnesium Sulfate 50 ml @ 25 mls/hr ONCE ONCE IVPB ; Start 08/15/18 at 11:30; Stop 08/15/18 at 13:29 Magnesium Sulfate 50 ml @ 25 mls/hr ONCE ONCE IVPB ; Start 08/15/18 at 12:00; Stop 08/15/18 at 13:59 Diltiazem HCl (Cardizem Iv) 5 mg Q1H PRN IV HR > 100; Start 08/15/18 at 12:00 Assessment/Plan Hospital Course (Demo Recall) 1. Recurrent syncope mostly secondary to asystolic pauses 2. Sick sinus with tachycardia joseph syndrome with episode of long pause as well as mostly in atrial fibrillation rapid ventricular response now 3. Nausea vomiting 4. Hypertension 5. History of possible coronary artery disease detail is not clear 6. Abnormal EKG with left bundle branch block Recommendations: Continue patient on heparin drip for now Digoxin level was undetectable myocardial infarction was ruled out Echocardiogram and thyroid function test was reviewed Since no reversible causes is found patient will need to have a permanent pacemaker placement. He has tachybradycardia syndrome and at this point unable to slow down her heart rate too much without worrying about the multiple pauses and syncopal episode that she has had. I will keep her on IV Cardizem as needed and low-dose. Permanent pacemaker has been recommended the patient and the son, Devaughn. Risk-benefit alternative procedure discussed with the patient understanding detail. Risks include but limited risk of infection vascular complication bleeding complication pneumothorax hemothorax anesthesia related complication perforation that etc. discussed with them. Patient and the family want discussed with the rest of the family. If they agree to it we will schedule the patient for the pacemaker placement. Meanwhile patient will be closely monitored intensive care unit and has a order for pacemaker patches on to be used only as needed emergency cases Thank you for his referral. We will continue to follow along with you BERENICE DHALIWAL MD [facility] BERENICE DHALIWAL MD Aug 15, 2018 11:58
[2018-08-15] MEDS ORDERED: DILTIAZEM 25 MG INJ IV PRN (12:00)
--- NOTE | 2018-08-15 15:07 | PN ---
Date/Time of Note Date/Time of Note DATE: 08/15/18 TIME: 15:06 Assessment/Plan VTE Prophylaxis Risk score (from Nsg)>0 risk: 4 SCD applied (from Nsg): Yes Pharmacological prophylaxis: heparin Lines/Catheters IV Catheter Type (from Nrsg): Peripheral IV Urinary Cath still in place: Yes Reason Cath still needed: urinary retention Assessment/Plan Hospital Course Appeasr uncomfortable Somnulent but arousable Irreg irreg, tachy Rhonchi, phlegm Breathing comfortably Abdomen is soft, nt, nd Ext warm no edema A/P: 72 yo female with h/o hypertension and LBBB who presents with nausea syndrome complicated by syncope with pauses on telemetry Syncoep with A FIb and pauses: - Hold metoprlol - AC per Dr Huerta - Pacemaker pads applied - Will likely need PPM implant this admission Nausea: - not clear to me why. Perhaps a viral GI illness. Perhpas this is a symptom of her A Fib. No apparent infection clinically. CT head was negative for stroke - Observe - Sympomatic care Hypertension: - Hold home meds Result Diagram: 08/15/18 0643 08/15/18 0643 Results 24hrs Laboratory Tests Test 08/14/18 17:00 08/14/18 20:11 08/14/18 22:34 08/15/18 06:43 Urine Color YELLOW Urine Clarity CLEAR Urine pH 6.0 Urine Specific 1.013 [place] Urine Ketones NEGATIVE Urine Nitrite NEGATIVE Urine Bilirubin NEGATIVE Urine Urobilinogen NEGATIVE Urine Leukocyte NEGATIVE Esterase Urine Hemoglobin NEGATIVE Urine Glucose NEGATIVE Urine Total Protein NEGATIVE White Blood Count 15.1 #H 10.6 # Red Blood Count 4.23 3.79 L Hemoglobin 12.4 11.2 L Hematocrit 36.5 L 33.3 L Mean Corpuscular 86.3 87.9 Volume Mean Corpuscular 29.3 29.6 Hemoglobin Mean Corpuscular 34.0 33.6 Hemoglobin Concent Red Cell 12.5 12.5 Distribution Width Platelet Count 279 272 Mean Platelet Volume 10.5 H 10.5 H Immature 0.300 0.500 H Granulocytes % Neutrophils % 84.3 H 70.1 Lymphocytes % 7.6 L 20.0 Monocytes % 7.6 8.7 Eosinophils % 0.0 0.2 Basophils % 0.2 0.5 Nucleated Red Blood 0.0 0.0 Cells % Immature 0.050 H 0.050 H Granulocytes # Neutrophils # 12.7 H 7.5 Lymphocytes # 1.2 2.1 Monocytes # 1.2 H 0.9 Eosinophils # 0.0 0.0 Basophils # 0.0 0.1 Nucleated Red Blood 0.0 0.0 Cells # Sodium Level 140 142 Potassium Level 4.2 4.5 Chloride Level 104 107 Carbon Dioxide Level 24 26 Anion Gap 12 9 Blood Urea Nitrogen 16 16 Creatinine 0.77 0.91 Est Glomerular Filtrat Rate mL/min Glucose Level 135 111 Calcium Level 9.5 8.8 Total Bilirubin 0.7 0.8 Direct Bilirubin 0.00 0.00 Indirect Bilirubin 0.7 0.8 Aspartate Amino 94 H 36 Transf (AST/SGOT) Alanine 66 46 Aminotransferase (AL T/SGPT) Alkaline Phosphatase 92 66 Creatine Kinase 61 42 Creatine Kinase 1.9 3.0 Index Creatinine Kinase MB 1.16 1.28 (Mass) Troponin I < 0.012 0.031 Total Protein 7.0 5.9 #L Albumin 4.1 3.3 Globulin 2.90 2.60 Albumin/Globulin 1.41 1.26 Ratio Activated 67.8 H 107.7 *H Partial Thromboplast Time Hemoglobin A1c 5.3 Magnesium Level 1.6 L B-Type Natriuretic 4460 H Peptide Thyroid Stimulating 1.400 Hormone (TSH) Free Thyroxine 1.43 Digoxin Level < 0.4 L Test 08/15/18 13:54 Activated 74.1 *H Partial Thromboplast Time Subjective 24 Hr Interval Summary Free Text/Dictation Having episodes of RVR and intermittent pauses Still with some nausea Exam/Review of Systems Exam Vitals Vital Signs Date Temp Pulse Resp B/P (MAP) Pulse Ox O2 O2 Flow FiO2 Time Delivery Rate 08/15/18 99 14:02 08/15/18 22 138/103 96 Nasal 2.0 14:00 (115) Cannula 08/15/18 98.0 12:00 Intake and Output 08/14/18 08/14/18 08/15/18 1515:00 23:00 07:00 IntakeIntake Total 1000 ml 48 ml 514 ml OutputOutput Total 205 ml 220 ml BalanceBalance 1000 ml -157 ml 294 ml Results Results 24hrs Laboratory Tests Test 08/14/18 17:00 08/14/18 20:11 08/14/18 22:34 08/15/18 06:43 Urine Color YELLOW Urine Clarity CLEAR Urine pH 6.0 Urine Specific 1.013 [place] Urine Ketones NEGATIVE Urine Nitrite NEGATIVE Urine Bilirubin NEGATIVE Urine Urobilinogen NEGATIVE Urine Leukocyte NEGATIVE Esterase Urine Hemoglobin NEGATIVE Urine Glucose NEGATIVE Urine Total Protein NEGATIVE White Blood Count 15.1 #H 10.6 # Red Blood Count 4.23 3.79 L Hemoglobin 12.4 11.2 L Hematocrit 36.5 L 33.3 L Mean Corpuscular 86.3 87.9 Volume Mean Corpuscular 29.3 29.6 Hemoglobin Mean Corpuscular 34.0 33.6 Hemoglobin Concent Red Cell 12.5 12.5 Distribution Width Platelet Count 279 272 Mean Platelet Volume 10.5 H 10.5 H Immature 0.300 0.500 H Granulocytes % Neutrophils % 84.3 H 70.1 Lymphocytes % 7.6 L 20.0 Monocytes % 7.6 8.7 Eosinophils % 0.0 0.2 Basophils % 0.2 0.5 Nucleated Red Blood 0.0 0.0 Cells % Immature 0.050 H 0.050 H Granulocytes # Neutrophils # 12.7 H 7.5 Lymphocytes # 1.2 2.1 Monocytes # 1.2 H 0.9 Eosinophils # 0.0 0.0 Basophils # 0.0 0.1 Nucleated Red Blood 0.0 0.0 Cells # Sodium Level 140 142 Potassium Level 4.2 4.5 Chloride Level 104 107 Carbon Dioxide Level 24 26 Anion Gap 12 9 Blood Urea Nitrogen 16 16 Creatinine 0.77 0.91 Est Glomerular Filtrat Rate mL/min Glucose Level 135 111 Calcium Level 9.5 8.8 Total Bilirubin 0.7 0.8 Direct Bilirubin 0.00 0.00 Indirect Bilirubin 0.7 0.8 Aspartate Amino 94 H 36 Transf (AST/SGOT) Alanine 66 46 Aminotransferase (AL T/SGPT) Alkaline Phosphatase 92 66 Creatine Kinase 61 42 Creatine Kinase 1.9 3.0 Index Creatinine Kinase MB 1.16 1.28 (Mass) Troponin I < 0.012 0.031 Total Protein 7.0 5.9 #L Albumin 4.1 3.3 Globulin 2.90 2.60 Albumin/Globulin 1.41 1.26 Ratio Activated 67.8 H 107.7 *H Partial Thromboplast Time Hemoglobin A1c 5.3 Magnesium Level 1.6 L B-Type Natriuretic 4460 H Peptide Thyroid Stimulating 1.400 Hormone (TSH) Free Thyroxine 1.43 Digoxin Level < 0.4 L Test 08/15/18 13:54 Activated 74.1 *H Partial Thromboplast Time Medications Medication Current Medications Heparin Sodium (Porcine) (Heparin (1000 Units/ml)) 4,000 unit PER PROTOCOL PRN IV aPTT<47; Start 08/14/18 at 15:30 Heparin Sodium (Porcine) 250 ml @ 8 mls/hr PER PROTOCOL IV Last administered on 08/14/18 16:18; Admin Dose 8 MLS/HR; Start 08/14/18 at 15:30 IV Flush (NS 3 ml) 3 ml PER PROTOCOL IV ; Start 08/14/18 at 16:00 Ondansetron HCl (Zofran Inj) 4 mg Q6H PRN IV NAUSEA/VOMITING Last administered on 08/15/18at 11:29; Admin Dose 4 MG; Start 08/14/18 at 16:00 Metoclopramide HCl (Reglan) 10 mg Q6H PRN IV NAUSEA/VOMITING Last administered on 08/14/18at 18:32; Admin Dose 10 MG; Start 08/14/18 at 16:00 Oxycodone/ Acetaminophen (Percocet (5/ 325)) 2 tab Q6H PRN PO .SEVERE PAIN 7- 10; Start 08/14/18 at 16:00 Famotidine (Pepcid Iv) 20 mg DAILY IV Last administered on 08/15/18at 09:29; Admin Dose 20 MG; Start 08/14/18 at 16:00 Zolpidem Tartrate (Ambien) 10 mg HS PRN PO INSOMNIA Last administered on 08/14/18at 22:43; Admin Dose 10 MG; Start 08/14/18 at 22:30 Diltiazem HCl (Cardizem Iv) 5 mg Q1H PRN IV HR > 100; Start 08/15/18 at 12:00 PHUONG RIZVI MD Aug 15, 2018 15:07
[2018-08-15] MEDS: METOCLOPRAMIDE 10 MG INJ IV PRN ×2 (16:22→22:36)
[2018-08-15] MEDS: OXYCODONE/ACETAMINOPHEN (5/325) TAB PO PRN (20:18)
[2018-08-15] MEDS: ZOLPIDEM 5 MG TAB PO PRN (22:37)
[2018-08-16] VITALS (35 sets, daily range): BP systolic 120–165; BP diastolic 43–75; PULSE 62–95; RESP 10–24
[2018-08-16] MEDS: ONDANSETRON 4 MG INJ IV PRN ×2 (02:43→08:38)
[2018-08-16] MEDS: METOCLOPRAMIDE 10 MG INJ IV PRN ×2 (04:22→11:59)
[2018-08-16] MEDS: OXYCODONE/ACETAMINOPHEN (5/325) TAB PO PRN (04:29)
[2018-08-16] MEDS: HEPARIN 25000 UNITS/250 ML 250 ML IV SCH (05:36)
[2018-08-16] MEDS: FAMOTIDINE 20 MG INJ IV SCH (08:13)
[2018-08-16] MEDS ORDERED: POLYMYXIN/BACITRACIN 1L IRRIG IRR ONE (13:00)
[2018-08-16] MEDS ORDERED: LIDOCAINE 1%/EPI (1:100,000) (MDV) 20 ML ONE (14:04)
[2018-08-16] MEDS ORDERED: CEFAZOLIN 1 GM/50 ML (PMX) 100 ML IVPB ONE (14:13)
[2018-08-16] MEDS ORDERED: IODIXANOL LOCM 50 ML BTL ONE (14:14)
--- NOTE | 2018-08-16 14:53 | CONS ---
Consult Date/Type/Reason Admit Date/Time Aug 14, 2018 at 15:40 Initial Consult Date 08/14/18 Type of Consultation: cv Requesting Provider: TINO JACKSON MD Date/Time of Note DATE: 08/16/18 TIME: 14:51 Subjective Interventional cardiology follow-up progress note Subjective: Discussed with the staff and telemetry was reviewed. Patient converted back to sinus rhythm. Has intermittent 2-1 AV block as well though. No syncope presyncope now. Objective: General: no acute distress HEENT: NC/AT. pupils are equal. round. NECK: NO JVD. no stridor. CV: RRR. systolic murmur; no gallop or rubs. PULM: no wheezing or rhonchi. GI: SOFT, NT, ND, no rebound or guarding Extremity: trace B/L LE edema. no clubbing. neuro: awake and alert, OX3. Psych: calm and pleasant rectal: deferred There is mild enlargement of left atrium. Normal left ventricular systolic function. Normal left ventricular cavity size. Normal left ventricular wall thickness. Ejection fraction is visually estimated at 56-60 %. Tissue Doppler/Mitral Doppler indices are within normal limits. Mild mitral annular calcification. Mild mitral valve regurgitation. Normal appearance and function of the tricuspid valve with trace physiologic regurgitation. Tricuspid valve not well visualized. Normal appearance of the aortic valve. Aortic valve not well visualized. Aortic sclerosis without significant stenosis. No aortic regurgitation. n. Normal size and normal respiratory collapse consistent with normal right atrial pressure. Objective Vitals Vital Signs Date Temp Pulse Resp B/P (MAP) Pulse Ox O2 O2 Flow FiO2 Time Delivery Rate 08/16/18 98.9 12:00 08/16/18 89 12:00 08/16/18 22 146/52 97 12:00 (83) 08/16/18 Nasal 2.0 12:00 Cannula Intake and Output 08/15/18 08/15/18 08/16/18 1414:59 22:59 06:59 IntakeIntake Total 485.5 ml 268 ml 129 ml OutputOutput Total 405 ml 315 ml 235 ml BalanceBalance 80.5 ml -47 ml -106 ml Results/Medications Result Diagram: 08/16/18 0436 08/16/18 0436 Results 24 hrs Laboratory Tests Test 08/15/18 20:40 08/16/18 02:43 08/16/18 04:36 08/16/18 08:27 Activated 64.6 H 50.7 H Partial Thromboplast Time White Blood Count 9.6 Red Blood Count 3.51 L Hemoglobin 10.3 L Hematocrit 31.0 L Mean Corpuscular Volume 88.3 Mean Corpuscular 29.3 Hemoglobin Mean Corpuscular 33.2 Hemoglobin Concent Red Cell Distribution 12.9 Width Platelet Count 276 Mean Platelet Volume 10.9 H Immature Granulocytes % 0.400 Neutrophils % 64.9 Lymphocytes % 24.1 Monocytes % 9.7 Eosinophils % 0.3 Basophils % 0.6 Nucleated Red Blood 0.0 Cells % Immature Granulocytes # 0.040 H Neutrophils # 6.2 Lymphocytes # 2.3 Monocytes # 0.9 Eosinophils # 0.0 Basophils # 0.1 Nucleated Red Blood 0.0 Cells # Sodium Level 142 Potassium Level 4.1 Chloride Level 107 Carbon Dioxide Level 26 Anion Gap 9 Blood Urea Nitrogen 16 Creatinine 0.87 Est Glomerular Filtrat Rate mL/min Glucose Level 111 Calcium Level 9.1 Magnesium Level 2.1 Total Bilirubin 0.5 Direct Bilirubin 0.00 Indirect Bilirubin 0.5 Aspartate Amino 28 Transf (AST/SGOT) Alanine 40 Aminotransferase (ALT/S GPT) Alkaline Phosphatase 78 Total Protein 6.8 Albumin 3.7 Globulin 3.10 Albumin/Globulin Ratio 1.19 Prothrombin Time 13.5 Prothrombin Time Ratio 1.1 INR International 1.02 Normalized Ratio Test 08/16/18 13:04 Activated 27.8 Partial Thromboplast Time Home Meds Reported Medications Zolpidem Tartrate* (Ambien*) 10 Mg Tablet, 10 MG PO QHS PRN for INSOMNIA, TAB 07/11/18 Clonidine Hcl* (Clonidine Hcl*) 0.3 Mg Tablet, 0.3 MG PO BID, TAB 07/11/18 Losartan Potassium* (Losartan Potassium*) 25 Mg Tablet, 12.5 MG PO DAILY, TAB 07/11/18 Clonazepam* (Clonazepam*) 0.5 Mg Tablet, 0.5 MG PO QHS PRN for ANXIETY, TAB 07/11/18 Metoprolol Succinate* (Toprol XL*) 100 Mg Tab.sr.24h, 100 MG PO DAILY, #30 TAB 07/11/18 Amlodipine Besylate* (Norvasc*) 5 Mg Tablet, 5 MG PO DAILY, TAB 5/26/19 Medications Current Medications Heparin Sodium (Porcine) (Heparin (1000 Units/ml)) 4,000 unit PER PROTOCOL PRN IV aPTT<47; Start 08/14/18 at 15:30 Heparin Sodium (Porcine) 250 ml @ 8 mls/hr PER PROTOCOL IV Last administered on 08/16/18 05:36; Admin Dose 7 MLS/HR; Start 08/14/18 at 15:30 IV Flush (NS 3 ml) 3 ml PER PROTOCOL IV ; Start 08/14/18 at 16:00 Ondansetron HCl (Zofran Inj) 4 mg Q6H PRN IV NAUSEA/VOMITING Last administered on 08/16/18 08:38; Admin Dose 4 MG; Start 08/14/18 at 16:00 Metoclopramide HCl (Reglan) 10 mg Q6H PRN IV NAUSEA/VOMITING Last administered on 08/16/18 11:59; Admin Dose 10 MG; Start 08/14/18 at 16:00 Oxycodone/ Acetaminophen (Percocet (5/ 325)) 2 tab Q6H PRN PO .SEVERE PAIN 7-10 Last administered on 08/16/18 04:29; Admin Dose 2 TAB; Start 08/14/18 at 16:00 Famotidine (Pepcid Iv) 20 mg DAILY IV Last administered on 08/16/18 08:13; Admin Dose 20 MG; Start 08/14/18 at 16:00 Zolpidem Tartrate (Ambien) 10 mg HS PRN PO INSOMNIA Last administered on 08/15/18at 22:37; Admin Dose 10 MG; Start 08/14/18 at 22:30 Diltiazem HCl (Cardizem Iv) 5 mg Q1H PRN IV HR > 100; Start 08/15/18 at 12:00 Captopril (Capoten) 25 mg Q6 PRN PO ELEVATED BLOOD PRESSURE Last administered on 08/16/18 13:43; Admin Dose 25 MG; Start 08/15/18 at 18:30 Assessment/Plan Hospital Course (Demo Recall) 1. Recurrent syncope mostly secondary to asystolic pauses as well as possibly secondary to heart block. 2. Sick sinus with tachycardia joseph syndrome with episode of long pause as well as mostly in atrial fibrillation rapid ventricular response now 3. Nausea vomiting 4. Hypertension 5. History of possible coronary artery disease detail is not clear 6. Abnormal EKG with left bundle branch block 7. Intermittent 2-1 AV block and 7 high degree AV block Recommendations: Discontinue heparin drip for now Digoxin level was undetectable myocardial infarction was ruled out Echocardiogram and thyroid function test was reviewed Since no reversible causes is found patient will need to have a permanent pacemaker placement. He has tachybradycardia syndrome and at this point unable to slow down her heart rate too much without worrying about the multiple pauses and syncopal episode that she has had. I will keep her on IV Cardizem as needed and low-dose. Permanent pacemaker has been recommended the patient and the son, Devaughn. Risk-benefit alternative procedure discussed with the patient understanding detail. Risks include but limited risk of infection vascular complication bleeding complication pneumothorax hemothorax anesthesia related complication perforation that etc. discussed with them. Consent has been obtained. Thank you for his referral. We will continue to follow along with you BERENICE DHALIWAL MD [facility] BERENICE DHALIWAL MD Aug 16, 2018 14:53
--- NOTE | 2018-08-16 15:16 | PREAC ---
Date/Time of Note Date/Time of Note DATE: 08/16/18 TIME: 15:15 Anesthesia Eval and Record Evaluation Time Pre-Procedure Interview DATE: 08/16/18 TIME: 15:15 Age 72 Sex female NPO: 8 hrs Preoperative diagnosis sick sinus syndrome Planned procedure permanent pacemaker placement Past Medical History Past Medical History: Includes Cardio: HTN, Dyslipidemia, CAD, Arrythmia Musculoskeletal: Osteoarthritis GI: GERD Heme: Anemia Surgery & Anesthesia Issues No known issue Meds Anticoagulation: No Beta Alvin within 24 hr: No Reason Beta Alvin not given: Pt. not on B-Alvin Reported Medications Zolpidem Tartrate* (Ambien*) 10 Mg Tablet, 10 MG PO QHS PRN for INSOMNIA, TAB 07/11/18 Clonidine Hcl* (Clonidine Hcl*) 0.3 Mg Tablet, 0.3 MG PO BID, TAB 07/11/18 Losartan Potassium* (Losartan Potassium*) 25 Mg Tablet, 12.5 MG PO DAILY, TAB 07/11/18 Clonazepam* (Clonazepam*) 0.5 Mg Tablet, 0.5 MG PO QHS PRN for ANXIETY, TAB 07/11/18 Metoprolol Succinate* (Toprol XL*) 100 Mg Tab.sr.24h, 100 MG PO DAILY, #30 TAB 07/11/18 Amlodipine Besylate* (Norvasc*) 5 Mg Tablet, 5 MG PO DAILY, TAB 07/11/18 Current Medications Heparin Sodium (Porcine) (Heparin (1000 Units/ml)) 4,000 unit PER PROTOCOL PRN IV aPTT<47; Start 08/14/18 at 15:30 Heparin Sodium (Porcine) 250 ml @ 8 mls/hr PER PROTOCOL IV Last administered on 08/16/18at 05:36; Admin Dose 7 MLS/HR; Start 08/14/18 at 15:30 IV Flush (NS 3 ml) 3 ml PER PROTOCOL IV ; Start 08/14/18 at 16:00 Ondansetron HCl (Zofran Inj) 4 mg Q6H PRN IV NAUSEA/VOMITING Last administered on 08/16/18at 08:38; Admin Dose 4 MG; Start 08/14/18 at 16:00 Metoclopramide HCl (Reglan) 10 mg Q6H PRN IV NAUSEA/VOMITING Last administered on 08/16/18at 11:59; Admin Dose 10 MG; Start 08/14/18 at 16:00 Oxycodone/ Acetaminophen (Percocet (5/ 325)) 2 tab Q6H PRN PO .SEVERE PAIN 7-10 Last administered on 08/16/18at 04:29; Admin Dose 2 TAB; Start 08/14/18 at 16:00 Famotidine (Pepcid Iv) 20 mg DAILY IV Last administered on 08/16/18at 08:13; Admin Dose 20 MG; Start 08/14/18 at 16:00 Zolpidem Tartrate (Ambien) 10 mg HS PRN PO INSOMNIA Last administered on 08/15/18at 22:37; Admin Dose 10 MG; Start 08/14/18 at 22:30 Diltiazem HCl (Cardizem Iv) 5 mg Q1H PRN IV HR > 100; Start 08/15/18 at 12:00 Captopril (Capoten) 25 mg Q6 PRN PO ELEVATED BLOOD PRESSURE Last administered on 08/16/18at 13:43; Admin Dose 25 MG; Start 08/15/18 at 18:30 Meds reviewed: Yes Allergies Coded Allergies: No Known Allergy (Unverified , 08/14/18) Allergies Reviewed: Yes Labs/Studies Labs Reviewed: Reviewed by anesthesiologist Result Diagram: 08/16/18 0436 08/16/18 0436 Laboratory Tests 08/16/18 04:36 test: N/A Studies: ECG, CXR, 2D Echo Pre-procedure Exam Last vitals Vital Signs Date Temp Pulse Resp B/P (MAP) Pulse Ox O2 O2 Flow FiO2 Time Delivery Rate 08/16/18 98.9 12:00 08/16/18 89 12:00 08/16/18 22 146/52 97 12:00 (83) 08/16/18 Nasal 2.0 12:00 Cannula Airway: Adequate mouth opening, Adequate thyromental dist Mallampati: Mallampati II Teeth: Normal Lung: Normal Heart: Normal ASA Physical Status ASA physical status: 4 Emergency: None Planned Anesthetic General/MAC: Mask, MAC Pre-operative Attestations Prior to commencing anesthesia and surgery, the patient was re-evaluated, there was verification of: *The patient's identity *The results of appropriate recent lab work and preoperative vital signs *The above evaluation not changing prior to induction *Anesthetic plan, risk benefits, alternative and complications discussed with patient/family; questions answered; patient/family understands, accepts and wishes to proceed. FAUSTO RAMOS Aug 16, 2018 15:16
[2018-08-16] MEDS ORDERED: PROPOFOL 20 ML ONE (15:31)
--- NOTE | 2018-08-16 16:35 | PN ---
Date/Time of Note Date/Time of Note DATE: 08/16/18 TIME: 16:33 Assessment/Plan VTE Prophylaxis Risk score (from Nsg)>0 risk: 3 SCD applied (from Nsg): Yes Pharmacological prophylaxis: heparin Lines/Catheters IV Catheter Type (from Nrsg): Peripheral IV Assessment/Plan Hospital Course 72 yo female with h/o hypertension and LBBB who presents with nausea syndrome complicated by syncope with pauses on telemetry Syncope with A FIb and pauses: - Hold metoprlol - AC with heparin per Dr Huerta - Pacemaker pads applied -Plan for PPM implant today Nausea: -Possible secondary to arrhythmia versus a viral GI illness, CT head was negative for stroke - Observe -Symptomatic care Hypertension: - Hold home meds Prophylaxis: Heparin Result Diagram: 08/16/186 08/16/18 0436 Results 24hrs Laboratory Tests Test 08/15/18 20:40 08/16/18 02:43 08/16/18 04:36 08/16/18 08:27 Activated 64.6 H 50.7 H Partial Thromboplast Time White Blood Count 9.6 Red Blood Count 3.51 L Hemoglobin 10.3 L Hematocrit 31.0 L Mean Corpuscular Volume 88.3 Mean Corpuscular 29.3 Hemoglobin Mean Corpuscular 33.2 Hemoglobin Concent Red Cell Distribution 12.9 Width Platelet Count 276 Mean Platelet Volume 10.9 H Immature Granulocytes % 0.400 Neutrophils % 64.9 Lymphocytes % 24.1 Monocytes % 9.7 Eosinophils % 0.3 Basophils % 0.6 Nucleated Red Blood 0.0 Cells % Immature Granulocytes # 0.040 H Neutrophils # 6.2 Lymphocytes # 2.3 Monocytes # 0.9 Eosinophils # 0.0 Basophils # 0.1 Nucleated Red Blood 0.0 Cells # Sodium Level 142 Potassium Level 4.1 Chloride Level 107 Carbon Dioxide Level 26 Anion Gap 9 Blood Urea Nitrogen 16 Creatinine 0.87 Est Glomerular Filtrat Rate mL/min Glucose Level 111 Calcium Level 9.1 Magnesium Level 2.1 Total Bilirubin 0.5 Direct Bilirubin 0.00 Indirect Bilirubin 0.5 Aspartate Amino 28 Transf (AST/SGOT) Alanine 40 Aminotransferase (ALT/S GPT) Alkaline Phosphatase 78 Total Protein 6.8 Albumin 3.7 Globulin 3.10 Albumin/Globulin Ratio 1.19 Prothrombin Time 13.5 Prothrombin Time Ratio 1.1 INR International 1.02 Normalized Ratio Test 08/16/18 13:04 Activated 27.8 Partial Thromboplast Time Subjective 24 Hr Interval Summary Gastrointestinal: nausea Exam/Review of Systems Exam Vitals Vital Signs Date Temp Pulse Resp B/P (MAP) Pulse Ox O2 O2 Flow FiO2 Time Delivery Rate 08/16/18 2.0 15:41 08/16/18 98.9 12:00 08/16/18 89 12:00 08/16/18 22 146/52 97 12:00 (83) 08/16/18 Nasal 12:00 Cannula Intake and Output 08/15/18 08/15/18 08/16/18 1515:00 23:00 07:00 IntakeIntake Total 421.5 ml 268 ml 130 ml OutputOutput Total 455 ml 265 ml 270 ml BalanceBalance -33.5 ml 3 ml -140 ml Constitutional: alert, oriented Respiratory: clear to auscultation Cardiovascular: regular rate and rhythm Gastrointestinal: soft; No distended Musculoskeletal: nl extremities to inspection Results Results 24hrs Laboratory Tests Test 08/15/18 20:40 08/16/18 02:43 08/16/18 04:36 08/16/18 08:27 Activated 64.6 H 50.7 H Partial Thromboplast Time White Blood Count 9.6 Red Blood Count 3.51 L Hemoglobin 10.3 L Hematocrit 31.0 L Mean Corpuscular Volume 88.3 Mean Corpuscular 29.3 Hemoglobin Mean Corpuscular 33.2 Hemoglobin Concent Red Cell Distribution 12.9 Width Platelet Count 276 Mean Platelet Volume 10.9 H Immature Granulocytes % 0.400 Neutrophils % 64.9 Lymphocytes % 24.1 Monocytes % 9.7 Eosinophils % 0.3 Basophils % 0.6 Nucleated Red Blood 0.0 Cells % Immature Granulocytes # 0.040 H Neutrophils # 6.2 Lymphocytes # 2.3 Monocytes # 0.9 Eosinophils # 0.0 Basophils # 0.1 Nucleated Red Blood 0.0 Cells # Sodium Level 142 Potassium Level 4.1 Chloride Level 107 Carbon Dioxide Level 26 Anion Gap 9 Blood Urea Nitrogen 16 Creatinine 0.87 Est Glomerular Filtrat Rate mL/min Glucose Level 111 Calcium Level 9.1 Magnesium Level 2.1 Total Bilirubin 0.5 Direct Bilirubin 0.00 Indirect Bilirubin 0.5 Aspartate Amino 28 Transf (AST/SGOT) Alanine 40 Aminotransferase (ALT/S GPT) Alkaline Phosphatase 78 Total Protein 6.8 Albumin 3.7 Globulin 3.10 Albumin/Globulin Ratio 1.19 Prothrombin Time 13.5 Prothrombin Time Ratio 1.1 INR International 1.02 Normalized Ratio Test 08/16/18 13:04 Activated 27.8 Partial Thromboplast Time Medications Medication Current Medications Heparin Sodium (Porcine) (Heparin (1000 Units/ml)) 4,000 unit PER PROTOCOL PRN IV aPTT<47; Start 08/14/18 at 15:30 Heparin Sodium (Porcine) 250 ml @ 8 mls/hr PER PROTOCOL IV Last administered on 08/16/18at 05:36; Admin Dose 7 MLS/HR; Start 08/14/18 at 15:30 IV Flush (NS 3 ml) 3 ml PER PROTOCOL IV ; Start 08/14/18 at 16:00 Ondansetron HCl (Zofran Inj) 4 mg Q6H PRN IV NAUSEA/VOMITING Last administered on 08/16/18at 08:38; Admin Dose 4 MG; Start 08/14/18 at 16:00 Metoclopramide HCl (Reglan) 10 mg Q6H PRN IV NAUSEA/VOMITING Last administered on 08/16/18at 11:59; Admin Dose 10 MG; Start 08/14/18 at 16:00 Oxycodone/ Acetaminophen (Percocet (5/ 325)) 2 tab Q6H PRN PO .SEVERE PAIN 7-10 Last administered on 08/16/18at 04:29; Admin Dose 2 TAB; Start 08/14/18 at 16:00 Famotidine (Pepcid Iv) 20 mg DAILY IV Last administered on 08/16/18 08:13; Admin Dose 20 MG; Start 08/14/18 at 16:00 Zolpidem Tartrate (Ambien) 10 mg HS PRN PO INSOMNIA Last administered on 08/15/18at 22:37; Admin Dose 10 MG; Start 08/14/18 at 22:30 Diltiazem HCl (Cardizem Iv) 5 mg Q1H PRN IV HR > 100; Start 08/15/18 at 12:00 Captopril (Capoten) 25 mg Q6 PRN PO ELEVATED BLOOD PRESSURE Last administered on 08/16/18at 13:43; Admin Dose 25 MG; Start 08/15/18 at 18:30 LISA VENEGAS Aug 16, 2018 16:35
--- NOTE | 2018-08-16 16:57 | OPR ---
Date/Time of Note Date/Time of Note DATE: 08/16/18 TIME: 16:54 Operative Report Preoperative Diagnosis Symptomatic sick sinus syndrome and intermittent 2-1 AV block and syncope Postoperative Diagnosis Symptomatic sick sinus syndrome and intermittent 2-1 AV block and syncope Operation/Procedure Performed DDD PPM placement Surgeon see signature line Enterprise Systems Engineer Rigo Anesthesia Type: other Estimated Blood Loss: minimal Transfusion none Specimen None Grafts/Implants none Complications none Procedure Description Procedure performed: Permanent pacemaker placement using a [employer] MRI compatible device Left subclavian venogram and radiological interpretations Fluoroscopy and supervision Intracardiac electrocardiogram Indication: Symptomatic sick sinus syndrome with multiple syncopal episode and long pauses during the syncopal episode. Patient also with intermittent 2-1 AV block overnight and paroxysmal atrial fibrillation Anesthesia: Per anesthesiologist Hook And Eye Machine Operator: Berenice Huerta MD Procedure in detail: Written informed consent was obtained after risks benefits and alternatives di scussed with the patient and family in detail. Risks including but not limited to risk of infection, bleeding complications, anesthesia related complications, LA, CVA, perforation, pneumothorax hemothorax, etc discussed with pt in detail. Patient was brought into into the Sap Manager and placed in supine position. sedation was given. Left chest area was prepped and draped in regular sterile fashion. Left subclavian venogram was performed that showed patent subclavian vein and a small cephalic vein. AC groove area was anesthetized using 1% lidocaine with epi. A 3 cm incision was made in the AC groove area. Blunt dissection was carried out. Cephalic vein was isolated. It was cannulated using a micropuncture needle and an BMW wire was advanced through into the inferior vena cava. Micropuncture sheath was placed over it. BMW wire was removed and a J-wire was advanced through it. Then the micropuncture sheath was removed and a 6 [place] sheath was placed over into the cephalic vein. Then, another J-wire into the sheet. The sheath was removed again and a new sheath was placed over the wire into the cephalic vein. RV lead was advanced under direct fluoroscopy and placed in the right ventricular apex. Once a good position was found, threshold was checked which showed excellent threshold. It was screwed into place and threshold were checked again which showed good injury pattern and no diaphragmatic stimulation at 10 V an excellent thresholds. Then the sheath was peeled away. Another 6 [place] sheath was placed over the second wire into the cephalic vein into the subclavian vein. Right atrial lead was advanced under direct f luoroscopy and placed into the right atrial appendage. Once a good position was found it was screwed into place. Thresholds were checked again which showed excellent injury pattern and no diaphragmatic assimilation at 10 V and good thresholds. Right atrial lead sheath was removed. Both leads were tied down using 0 Ethibond suture. Pocket was irrigated with antibiotic solution. The lead was checked again which showed good thresholds. Then leads were connected into the device. Device was placed into the pocket and sutured using 0 Ethibond suture. Wound was closed with 1 layer of 2.0 Vicryl and 2 layers of 3.0 Vicryl. Steri- Strip was applied and pressure dressing was applied. Patient tolerated procedure well with no complication and was transferred to the recovery room in stable condition. Immediate complication: none Please see physical chart for details regarding pacemaker information and thresholds. Conclusions: Successful implantation of dual-chamber permanent pacemaker BERENICE HUERTA MD Aug 16, 2018 16:57
[2018-08-16] MEDS ORDERED: METOPROLOL (XL) 100 MG TAB PO SCH (17:00)
[2018-08-16] MEDS: morphine 2 MG INJ IV PRN ×2 (17:44→22:28)
[2018-08-16] MEDS: DRONEDARONE HYDROCHLORIDE 400 MG TAB PO SCH (19:02)
[2018-08-16] MEDS: ZOLPIDEM 5 MG TAB PO PRN (21:56)
[2018-08-16] MEDS: CEFAZOLIN 1 GM/50 ML (PMX) 50 ML IVPB SCH (21:56)
[2018-08-17] VITALS (20 sets, daily range): BP systolic 133–175; BP diastolic 52–74; PULSE 70–93; RESP 14–22
[2018-08-17] MEDS: morphine 2 MG INJ IV PRN (00:59)
[2018-08-17] MEDS: CEFAZOLIN 1 GM/50 ML (PMX) 50 ML IVPB SCH ×2 (05:27→14:00)
[2018-08-17] MEDS ORDERED: POTASSIUM CHLORIDE (SR) 20 MEQ TAB PO STA (07:20)
--- NOTE | 2018-08-17 07:25 | CONS ---
Consult Date/Type/Reason Admit Date/Time Aug 14, 2018 at 15:40 Initial Consult Date 08/14/18 Type of Consultation: cv Requesting Provider: TINO JACKSON MD Date/Time of Note DATE: 08/17/18 TIME: 07:22 Subjective Interventional cardiology follow-up progress note Subjective: Discussed with the staff and telemetry was reviewed. Patient has remained in sinus rhythm with intermittent atrial pacing. Patient has taken off her Steri-Strips in the chest has been moving her arms overnight.. No syncope presyncope now. Objective: General: no acute distress HEENT: NC/AT. pupils are equal. round. NECK: NO JVD. no stridor. CV: RRR. systolic murmur; no gallop or rubs. PULM: no wheezing or rhonchi. GI: SOFT, NT, ND, no rebound or guarding Extremity: trace B/L LE edema. no clubbing. neuro: awake and alert, OX3. Psych: calm and pleasant rectal: deferred Chest: Status post permanent pacemaker no hematoma no bleeding Echocardiogram has shown: There is mild enlargement of left atrium. Normal left ventricular systolic function. Normal left ventricular cavity size. Normal left ventricular wall thickness. Ejection fraction is visually estimated at 56-60 %. Tissue Doppler/Mitral Doppler indices are within normal limits. Mild mitral annular calcification. Mild mitral valve regurgitation. Normal appearance and function of the tricuspid valve with trace physiologic regurgitation. Tricuspid valve not well visualized. Normal appearance of the aortic valve. Aortic valve not well visualized. Aortic sclerosis without significant stenosis. No aortic regurgitation. Normal size and normal respiratory collapse consistent with normal right atrial pressure. Objective Vitals Vital Signs Date Temp Pulse Resp B/P (MAP) Pulse Ox O2 O2 Flow FiO2 Time Delivery Rate 08/17/18 83 14 170/70 97 Nasal 2.0 06:00 (103) Cannula 08/17/18 98.7 04:00 Intake and Output 08/16/18 08/16/18 08/17/18 1515:00 23:00 07:00 IntakeIntake Total 21 ml 200 ml 100 ml OutputOutput Total 200 ml 325 ml 270 ml BalanceBalance -179 ml -125 ml -170 ml Results/Medications Result Diagram: 08/17/18 0449 08/17/18 0449 Results 24 hrs Laboratory Tests Test 08/16/18 08:27 08/16/18 13:04 08/17/18 04:49 Prothrombin Time 13.5 Prothrombin Time Ratio 1.1 INR International Normalized Ratio 1.02 Activated Partial Thromboplast Time 27.8 White Blood Count 9.9 Red Blood Count 3.32 L Hemoglobin 9.9 L Hematocrit 29.5 L Mean Corpuscular Volume 88.9 Mean Corpuscular Hemoglobin 29.8 Mean Corpuscular Hemoglobin Concent 33.6 Red Cell Distribution Width 12.3 Platelet Count 230 Mean Platelet Volume 10.6 H Immature Granulocytes % 0.200 Neutrophils % 66.1 Lymphocytes % 20.5 Monocytes % 12.0 H Eosinophils % 0.9 Basophils % 0.3 Nucleated Red Blood Cells % 0.0 Immature Granulocytes # 0.020 Neutrophils # 6.6 Lymphocytes # 2.0 Monocytes # 1.2 H Eosinophils # 0.1 Basophils # 0.0 Nucleated Red Blood Cells # 0.0 Sodium Level 141 Potassium Level 3.6 Chloride Level 104 Carbon Dioxide Level 30 Anion Gap 7 Blood Urea Nitrogen 13 Creatinine 0.78 Est Glomerular Filtrat Rate mL/min Glucose Level 105 Calcium Level 9.2 Phosphorus Level 3.0 Magnesium Level 1.7 Total Bilirubin 0.6 Direct Bilirubin 0.00 Indirect Bilirubin 0.6 Aspartate Amino Transf (AST/SGOT) 22 Alanine Aminotransferase (ALT/SGPT) 30 Alkaline Phosphatase 66 Total Protein 6.4 Albumin 3.5 Globulin 2.90 Albumin/Globulin Ratio 1.20 Home Meds Reported Medications Zolpidem Tartrate* (Ambien*) 10 Mg Tablet, 10 MG PO QHS PRN for INSOMNIA, TAB 07/11/18 Clonidine Hcl* (Clonidine Hcl*) 0.3 Mg Tablet, 0.3 MG PO BID, TAB 07/11/18 Losartan Potassium* (Losartan Potassium*) 25 Mg Tablet, 12.5 MG PO DAILY, TAB 07/11/18 Clonazepam* (Clonazepam*) 0.5 Mg Tablet, 0.5 MG PO QHS PRN for ANXIETY, TAB 07/11/18 Metoprolol Succinate* (Toprol XL*) 100 Mg Tab.sr.24h, 100 MG PO DAILY, #30 TAB 07/11/18 Amlodipine Besylate* (Norvasc*) 5 Mg Tablet, 5 MG PO DAILY, TAB 07/11/18 Medications Current Medications IV Flush (NS 3 ml) 3 ml PER PROTOCOL IV ; Start 08/14/18 at 16:00 Ondansetron HCl (Zofran Inj) 4 mg Q6H PRN IV NAUSEA/VOMITING Last administered on 08/16/18 08:38; Admin Dose 4 MG; Start 08/14/18 at 16:00 Metoclopramide HCl (Reglan) 10 mg Q6H PRN IV NAUSEA/VOMITING Last administered on 08/16/18at 11:59; Admin Dose 10 MG; Start 08/14/18 at 16:00 Oxycodone/ Acetaminophen (Percocet (5/ 325)) 2 tab Q6H PRN PO .SEVERE PAIN 7-10 Last administered on 08/16/18 04:29; Admin Dose 2 TAB; Start 08/14/18 at 16:00 Zolpidem Tartrate (Ambien) 10 mg HS PRN PO INSOMNIA Last administered on 08/16/18at 21:56; Admin Dose 10 MG; Start 08/14/18 at 22:30 Diltiazem HCl (Cardizem Iv) 5 mg Q1H PRN IV HR > 100; Start 08/15/18 at 12:00 Captopril (Capoten) 25 mg Q6 PRN PO ELEVATED BLOOD PRESSURE Last administered on 08/17/18 05:58; Admin Dose 25 MG; Start 08/15/18 at 18:30 Morphine Sulfate (morphine) 1 mg Q1H PRN IV PAIN Last administered on 08/17/18 00:59; Admin Dose 1 MG; Start 08/16/18 at 17:00 Cefazolin Sodium 50 ml @ 100 mls/hr Q8 IVPB Last administered on 08/17/18 05:27; Admin Dose 100 MLS/HR; Start 08/16/18 at 22:00; Stop 08/17/18 at 14:29 Metoprolol Succinate (Toprol Xl) 100 mg DAILY PO Last administered on 08/16/18at 19:03; Admin Dose 100 MG; Start 08/16/18 at 17:00 Dronedarone (Multaq) 400 mg BID WITH MEALS PO Last administered on 08/16/18at 19:02; Admin Dose 400 MG; Start 08/16/18 at 17:35 Famotidine (Pepcid) 20 mg DAILY PO ; Start 08/17/18 at 09:00 Assessment/Plan Hospital Course (Demo Recall) 1. Recurrent syncope mostly secondary to asystolic pauses as well as possibly secondary to heart block. 2. Sick sinus with tachycardia joseph syndrome with episode of long pause as well as mostly in atrial fibrillation rapid ventricular response now 3. Nausea vomiting 4. Hypertension 5. History of possible coronary artery disease detail is not clear 6. Abnormal EKG with left bundle branch block 7. Intermittent 2-1 AV block and 7 high degree AV block 8. Status post permanent pacemaker Recommendations: Echocardiogram and thyroid function test was reviewed Replace electrolyte including potassium magnesium We will give a dose of diuretic Lasix Beta-ricky was restarted. I will increase the dose low-dose of lisinopril will be added Multaq has been added to keep the patient in sinus rhythm GI work-up and treatment as per internal medicine. Pacemaker was interrogated personally reviewed on August 17, 2018 which showed normal functioning pacemaker DC planning tomorrow. Consider transfer to rehab if patient continues to be weak. Patient was advised not to touch the pacemaker site and leave the Steri-Strips alone. She was also advised not tolerates of her upper extremity Thank you for his referral. We will continue to follow along with you BERENICE DHALIWAL MD [facility] BERENICE DHALIWAL MD Aug 17, 2018 07:25
[2018-08-17] MEDS ORDERED: FUROSEMIDE 20 MG INJ IV ONE (07:30)
[2018-08-17] MEDS ORDERED: MAGNESIUM SULFATE 3 GM in DEXTROSE 5% 100 ML IVPB ONE (08:00)
[2018-08-17] MEDS: FAMOTIDINE 20 MG TAB PO SCH (08:23)
[2018-08-17] MEDS: LISINOPRIL 5 MG TAB PO SCH (08:23)
[2018-08-17] MEDS: METOPROLOL (XL) 100 MG TAB PO SCH ×2 (08:23→20:36)
[2018-08-17] MEDS: DRONEDARONE HYDROCHLORIDE 400 MG TAB PO SCH ×2 (08:24→18:01)
--- NOTE | 2018-08-17 08:49 | PAC ---
Date/Time of Note Date/Time of Note DATE: 08/17/18 TIME: 08:49 Post-Anesthesia Notes Post-Anesthesia Note Last documented vital signs Vital Signs Date Temp Pulse Resp B/P (MAP) Pulse Ox O2 O2 Flow FiO2 Time Delivery Rate 08/17/18 98.8 71 18 154/66 99 Nasal 2.0 08:00 (95) Cannula Activity: WNL Respiratory function: WNL Cardiovascular function: WNL Mental status: Baseline Pain reasonably controlled: Yes Hydration appropriate: Yes Nausea/Vomiting absent: Yes FAUSTO RAMOS Aug 17, 2018 08:49
--- NOTE | 2018-08-17 15:03 | PN ---
Date/Time of Note Date/Time of Note DATE: 08/17/18 TIME: 15:01 Assessment/Plan VTE Prophylaxis Risk score (from Nsg)>0 risk: 2 Pharmacological prophylaxis: heparin Lines/Catheters IV Catheter Type (from Nrsg): Saline Lock Assessment/Plan Hospital Course 72 yo female with h/o hypertension and LBBB who presents with nausea syndrome complicated by syncope with pauses on telemetry Syncope with A FIb and pauses -Patient status post pacemaker placement -Have resumed metoprolol -Plan for DC tomorrow per cardiology Nausea: -Possible secondary to arrhythmia versus a viral GI illness, CT head was negative for stroke - Observe -Symptomatic care Hypertension: - Hold home meds Prophylaxis: Heparin DC planning: Anticipate DC home tomorrow Result Diagram: 08/17/1844808/17/18448 Results 24hrs Laboratory Tests Test 08/17/18 04:49 White Blood Count 9.9 Red Blood Count 3.32 L Hemoglobin 9.9 L Hematocrit 29.5 L Mean Corpuscular Volume 88.9 Mean Corpuscular Hemoglobin 29.8 Mean Corpuscular Hemoglobin Concent 33.6 Red Cell Distribution Width 12.3 Platelet Count 230 Mean Platelet Volume 10.6 H Immature Granulocytes % 0.200 Neutrophils % 66.1 Lymphocytes % 20.5 Monocytes % 12.0 H Eosinophils % 0.9 Basophils % 0.3 Nucleated Red Blood Cells % 0.0 Immature Granulocytes # 0.020 Neutrophils # 6.6 Lymphocytes # 2.0 Monocytes # 1.2 H Eosinophils # 0.1 Basophils # 0.0 Nucleated Red Blood Cells # 0.0 Sodium Level 141 Potassium Level 3.6 Chloride Level 104 Carbon Dioxide Level 30 Anion Gap 7 Blood Urea Nitrogen 13 Creatinine 0.78 Est Glomerular Filtrat Rate mL/min Glucose Level 105 Calcium Level 9.2 Phosphorus Level 3.0 Magnesium Level 1.7 Total Bilirubin 0.6 Direct Bilirubin 0.00 Indirect Bilirubin 0.6 Aspartate Amino Transf (AST/SGOT) 22 Alanine Aminotransferase (ALT/SGPT) 30 Alkaline Phosphatase 66 Total Protein 6.4 Albumin 3.5 Globulin 2.90 Albumin/Globulin Ratio 1.20 Subjective 24 Hr Interval Summary Constitutional: no complaints Exam/Review of Systems Exam Vitals Vital Signs Date Temp Pulse Resp B/P (MAP) Pulse Ox O2 O2 Flow FiO2 Time Delivery Rate 08/17/18 98.0 72 22 133/64 96 Nasal 12:09 (87) Cannula 08/17/18 2.0 09:30 Intake and Output 08/16/18 08/16/18 08/17/18 1515:00 23:00 07:00 IntakeIntake Total 21 ml 200 ml 100 ml OutputOutput Total 200 ml 325 ml 270 ml BalanceBalance -179 ml -125 ml -170 ml Constitutional: alert, oriented Respiratory: clear to auscultation Cardiovascular: regular rate and rhythm Gastrointestinal: soft; No distended Musculoskeletal: nl extremities to inspection Results Results 24hrs Laboratory Tests Test 08/17/18 04:49 White Blood Count 9.9 Red Blood Count 3.32 L Hemoglobin 9.9 L Hematocrit 29.5 L Mean Corpuscular Volume 88.9 Mean Corpuscular Hemoglobin 29.8 Mean Corpuscular Hemoglobin Concent 33.6 Red Cell Distribution Width 12.3 Platelet Count 230 Mean Platelet Volume 10.6 H Immature Granulocytes % 0.200 Neutrophils % 66.1 Lymphocytes % 20.5 Monocytes % 12.0 H Eosinophils % 0.9 Basophils % 0.3 Nucleated Red Blood Cells % 0.0 Immature Granulocytes # 0.020 Neutrophils # 6.6 Lymphocytes # 2.0 Monocytes # 1.2 H Eosinophils # 0.1 Basophils # 0.0 Nucleated Red Blood Cells # 0.0 Sodium Level 141 Potassium Level 3.6 Chloride Level 104 Carbon Dioxide Level 30 Anion Gap 7 Blood Urea Nitrogen 13 Creatinine 0.78 Est Glomerular Filtrat Rate mL/min Glucose Level 105 Calcium Level 9.2 Phosphorus Level 3.0 Magnesium Level 1.7 Total Bilirubin 0.6 Direct Bilirubin 0.00 Indirect Bilirubin 0.6 Aspartate Amino Transf (AST/SGOT) 22 Alanine Aminotransferase (ALT/SGPT) 30 Alkaline Phosphatase 66 Total Protein 6.4 Albumin 3.5 Globulin 2.90 Albumin/Globulin Ratio 1.20 Medications Medication Current Medications IV Flush (NS 3 ml) 3 ml PER PROTOCOL IV ; Start 08/14/18 at 16:00 Ondansetron HCl (Zofran Inj) 4 mg Q6H PRN IV NAUSEA/VOMITING Last administered on 08/16/18at 08:38; Admin Dose 4 MG; Start 08/14/18 at 16:00 Metoclopramide HCl (Reglan) 10 mg Q6H PRN IV NAUSEA/VOMITING Last administered on 08/16/18at 11:59; Admin Dose 10 MG; Start 08/14/18 at 16:00 Oxycodone/ Acetaminophen (Percocet (5/ 325)) 2 tab Q6H PRN PO .SEVERE PAIN 7-10 Last administered on 08/16/18at 04:29; Admin Dose 2 TAB; Start 08/14/18 at 16:00 Zolpidem Tartrate (Ambien) 10 mg HS PRN PO INSOMNIA Last administered on 08/16 21:56; Admin Dose 10 MG; Start 08/14/18 at 22:30 Diltiazem HCl (Cardizem Iv) 5 mg Q1H PRN IV HR > 100; Start 08/15/18 at 12:00 Captopril (Capoten) 25 mg Q6 PRN PO ELEVATED BLOOD PRESSURE Last administered on 08/17/18 05:58; Admin Dose 25 MG; Start 08/15/18 at 18:30 Morphine Sulfate (morphine) 1 mg Q1H PRN IV PAIN Last administered on 08/17/18 00:59; Admin Dose 1 MG; Start 08/16/18 at 17:00 Dronedarone (Multaq) 400 mg BID WITH MEALS PO Last administered on 08/17/18 08:24; Admin Dose 400 MG; Start 08/16/18 at 17:35 Famotidine (Pepcid) 20 mg DAILY PO Last administered on 08/17/18 08:23; Admin Dose 20 MG; Start 08/17/18 at 09:00 Metoprolol Succinate (Toprol Xl) 100 mg BID PO Last administered on 08/17/18 08:23; Admin Dose 100 MG; Start 08/17/18 at 09:00 Lisinopril (Zestril) 5 mg DAILY PO Last administered on 08/17/18 08:23; Admin Dose 5 MG; Start 08/17/18 at 09:00 LISA VENEGAS Aug 17, 2018 15:03
[2018-08-17] MEDS: ZOLPIDEM 5 MG TAB PO PRN (20:35)
[2018-08-18] MEDS: OXYCODONE/ACETAMINOPHEN (5/325) TAB PO PRN (01:02)
[2018-08-18 04:00] VITALS: BP 144/70; RESP 21
[2018-08-18 08:13] VITALS: BP 146/74; PULSE 71; RESP 22
--- NOTE | 2018-08-18 08:48 | CONS ---
Consult Date/Type/Reason Admit Date/Time Aug 14, 2018 at 15:40 Initial Consult Date 08/14/18 Type of Consultation: cv Requesting Provider: TINO JACKSON MD Date/Time of Note DATE: 08/18/18 TIME: 08:46 Subjective Interventional cardiology follow-up progress note Subjective: Discussed with the staff and telemetry was reviewed. Patient has remained in sinus rhythm with intermittent atrial pacing. Patient with no chest pain now no N/V syncope .. No syncope presyncope now. Objective: General: no acute distress HEENT: NC/AT. pupils are equal. round. NECK: NO JVD. no stridor. CV: RRR. systolic murmur; no gallop or rubs. PULM: no wheezing or rhonchi. GI: SOFT, NT, ND, no rebound or guarding Extremity: trace B/L LE edema. no clubbing. neuro: awake and alert, OX3. Psych: calm and pleasant rectal: deferred Chest: Status post permanent pacemaker no hematoma no bleeding Echocardiogram has shown: There is mild enlargement of left atrium. Normal left ventricular systolic function. Normal left ventricular cavity size. Normal left ventricular wall thickness. Ejection fraction is visually estimated at 56-60 %. Tissue Doppler/Mitral Doppler indices are within normal limits. Mild mitral annular calcification. Mild mitral valve regurgitation. Normal appearance and function of the tricuspid valve with trace physiologic regurgitation. Tricuspid valve not well visualized. Normal appearance of the aortic valve. Aortic valve not well visualized. Aortic sclerosis without significant stenosis. No aortic regurgitation. Normal size and normal respiratory collapse consistent with normal right atrial pressure. Objective Vitals Vital Signs Date Temp Pulse Resp B/P (MAP) Pulse Ox O2 O2 Flow FiO2 Time Delivery Rate 08/18/18 98.0 71 22 146/74 96 Nasal 08:13 (98) Cannula 08/18/18 3.0 04:08 Intake and Output 08/17/18 08/17/18 08/18/18 1515:00 23:00 07:00 IntakeIntake Total 50 ml OutputOutput Total 550 ml BalanceBalance 50 ml -550 ml Results/Medications Result Diagram: 08/17/18 0449 08/18/18 0616 Results 24 hrs Laboratory Tests Test 08/18/18 06:16 Sodium Level 140 Potassium Level 4.2 Chloride Level 99 Carbon Dioxide Level 33 H Anion Gap 8 Blood Urea Nitrogen 20 Creatinine 0.77 Est Glomerular Filtrat Rate mL/min Glucose Level 112 Calcium Level 9.2 Magnesium Level 2.1 Total Bilirubin 0.6 Direct Bilirubin 0.00 Indirect Bilirubin 0.6 Aspartate Amino Transf (AST/SGOT) 26 Alanine Aminotransferase (ALT/SGPT) 21 Alkaline Phosphatase 67 B-Type Natriuretic Peptide 1280 H Total Protein 7.0 Albumin 3.7 Globulin 3.30 H Albumin/Globulin Ratio 1.12 Home Meds Reported Medications Zolpidem Tartrate* (Ambien*) 10 Mg Tablet, 10 MG PO QHS PRN for INSOMNIA, TAB 07/11/18 Clonidine Hcl* (Clonidine Hcl*) 0.3 Mg Tablet, 0.3 MG PO BID, TAB 07/11/18 Losartan Potassium* (Losartan Potassium*) 25 Mg Tablet, 12.5 MG PO DAILY, TAB 07/11/18 Clonazepam* (Clonazepam*) 0.5 Mg Tablet, 0.5 MG PO QHS PRN for ANXIETY, TAB 07/11/18 Metoprolol Succinate* (Toprol XL*) 100 Mg Tab.sr.24h, 100 MG PO DAILY, #30 TAB 07/11/18 Amlodipine Besylate* (Norvasc*) 5 Mg Tablet, 5 MG PO DAILY, TAB 07/11/18 Medications Current Medications IV Flush (NS 3 ml) 3 ml PER PROTOCOL IV ; Start 08/14/18 at 16:00 Ondansetron HCl (Zofran Inj) 4 mg Q6H PRN IV NAUSEA/VOMITING Last administered on 08/16/18at 08:38; Admin Dose 4 MG; Start 08/14/18 at 16:00 Metoclopramide HCl (Reglan) 10 mg Q6H PRN IV NAUSEA/VOMITING Last administered on 08/16/18at 11:59; Admin Dose 10 MG; Start 08/14/18 at 16:00 Oxycodone/ Acetaminophen (Percocet (5/ 325)) 2 tab Q6H PRN PO .SEVERE PAIN 7-10 Last administered on 08/18/18at 01:02; Admin Dose 2 TAB; Start 08/14/18 at 16:00 Zolpidem Tartrate (Ambien) 10 mg HS PRN PO INSOMNIA Last administered on 08/17/18at 20:35; Admin Dose 10 MG; Start 08/14/18 at 22:30 Diltiazem HCl (Cardizem Iv) 5 mg Q1H PRN IV HR > 100; Start 08/15/18 at 12:00 Captopril (Capoten) 25 mg Q6 PRN PO ELEVATED BLOOD PRESSURE Last administered on 08/17/18at 05:58; Admin Dose 25 MG; Start 08/15/18 at 18:30 Morphine Sulfate (morphine) 1 mg Q1H PRN IV PAIN Last administered on 08/17/18at 00:59; Admin Dose 1 MG; Start 08/16/18 at 17:00 Dronedarone (Multaq) 400 mg BID WITH MEALS PO Last administered on 08/17/18at 18:01; Admin Dose 400 MG; Start 08/16/18 at 17:35 Famotidine (Pepcid) 20 mg DAILY PO Last administered on 08/17/18at 08:23; Admin Dose 20 MG; Start 08/17/18 at 09:00 Metoprolol Succinate (Toprol Xl) 100 mg BID PO Last administered on 08/17/18at 20:36; Admin Dose 100 MG; Start 08/17/18 at 09:00 Lisinopril (Zestril) 5 mg DAILY PO Last administered on 08/17/18at 08:23; Admin Dose 5 MG; Start 08/17/18 at 09:00 Assessment/Plan Hospital Course (Demo Recall) 1. Recurrent syncope mostly secondary to asystolic pauses as well as possibly secondary to heart block. 2. Sick sinus with tachycardia joseph syndrome with episode of long pause as well as mostly in atrial fibrillation rapid ventricular response now 3. Nausea vomiting 4. Hypertension 5. History of possible coronary artery disease detail is not clear 6. Abnormal EKG with left bundle branch block 7. Intermittent 2-1 AV block and 7 high degree AV block 8. Status post permanent pacemaker Recommendations: Echocardiogram and thyroid function test was reviewed Replace electrolyte including potassium magnesium continue with beta-ricky and lisinopril Multaq has been added to keep the patient in sinus rhythm GI work-up and treatment as per internal medicine. Pacemaker was interrogated personally reviewed on August 17, 2018 which showed normal functioning pacemaker We will start Eliquis starting tomorrow Okay to discharge from cardiac standpoint. Consider transfer to rehab if patient continues to be weak. Patient was advised not to touch the pacemaker site and leave the Steri-Strips alone. She was also advised not tolerates of her upper extremity Thank you for his referral. We will continue to follow along with you BERENICE DHALIWAL MD [facility] BERENICE DHALIWAL MD Aug 18, 2018 08:48
[2018-08-18] MEDS ORDERED: APIXABAN 5 MG TABLET PO SCH (09:00)
[2018-08-18] MEDS: FAMOTIDINE 20 MG TAB PO SCH (09:39)
[2018-08-18] MEDS: DRONEDARONE HYDROCHLORIDE 400 MG TAB PO SCH ×2 (09:40→17:58)
[2018-08-18] MEDS: LISINOPRIL 5 MG TAB PO SCH (09:40)
[2018-08-18] MEDS: METOPROLOL (XL) 100 MG TAB PO SCH (09:40)
[2018-08-18] MEDS ORDERED: LISI-313 PO (10:34)
[2018-08-18] MEDS ORDERED: DRON400T2 PO (10:34)
[2018-08-18] MEDS ORDERED: APIX5TAB PO (10:34)
[2018-08-18] MEDS ORDERED: METO-336 PO (10:34)
--- NOTE | 2018-08-18 10:35 | PDOCDIS ---
Discharge Instructions CONDITION [id number] Patient Condition: [id number] Good HOME CARE INSTRUCTIONS: [id number] Diet Instructions: [id number] Regular ACTIVITY: [id number] Activity Restrictions: [id number] Slowly Increase Activity FOLLOW UP/APPOINTMENTS Follow-up Plan FOLLOW UP WITH YOUR PCP IN 1-2 WEEKS LISA VENEGAS Aug 18, 2018 10:35
[2018-08-18 11:45] VITALS: BP 142/67; PULSE 75; RESP 22
--- NOTE | 2018-08-18 14:28 | CONS ---
Assessment/Plan Assessment/Plan Hospital Course (Demo Recall) Summary Assessment and Plan: Assessment: Nausea- currently resolved Poor appetite Sick sinus syndrome with episode of long pause -Status post permanent pacemaker 08/16/18 Hx of A-fib with RVR Hypertension Constipation Plan: MiraLAX po daily Currently patient states symptoms of nausea have resolved- She states she has poor appetite as she is fearful of having a BM No plan for endoscopic evaluation or appetite stimulants at this time- if appetite does not improve or nausea returns will consider in-pt upper endoscopy at that time. Utilize antiemetic therapy as needed Encourage p.o. intake discussed with nurse. Will closely monitor percentage of each meal patient is eating. Recommend out-pt colonoscopy We will continue close observation. Patient seen in collaboration with Dr. Mojica CC: TANMAY MOJICA MD ; Consultation Date/Type/Reason Admit Date/Time Aug 14, 2018 at 15:40 Date of Consultation: Aug 18, 2018 Type of Consult GI Reason for Consultation Nausea - poor appetite Date/Time of Note DATE: 08/18/18 TIME: 14:16 Hx of Present Illness This is a 72-year-old [place]ian speaking female past medical history of hyperte nsion and left bundle branch block who was admitted for nausea and syncope she was noted to be in atrial fibrillation with pauses. during hospitalization she was diagnosed with symptomatic sick sinus syndrome and intermittent 1-2 AV block with syncope she is status post permanent pacemaker using [employer] MRI compatible device. Patient was stabilized with plan to DC however DC was canceled secondary to poor appetite and nausea. GI has been consulted for further evaluation. At time evaluation family is at bedside to help translate patient states her nausea has resolved. She normally eats very small meals throughout the day. Here she is concerned if she increases her p.o. intake it will lead to increased bowel movements, which she is fearful of at this time. Currently she denies nausea/vomiting or abdominal pain. Patient has not had a bowel movement since Thursday which she is never had an upper endoscopy or colonoscopy. Review of Systems: A 12 system, review was conducted and is negative except as noted in the HPI or here. Past Medical History Medical History: no pertinent history, hypertension Home Meds Active Scripts Metoprolol Succinate* (Toprol XL*) 100 Mg Tab.sr.24h, 100 MG PO BID, #60 TAB Prov:LISA VENEGAS 08/18/18 Lisinopril* (Lisinopril*) 5 Mg Tablet, 5 MG PO DAILY, #60 TAB Prov:LISA VENEGAS 08/18/18 Dronedarone Hydrochloride* (Multaq*) 400 Mg Tablet, 400 MG PO BID WITH MEALS, #60 TAB Prov:LISA VENEGAS 08/18/18 Apixaban* (Eliquis*) 5 Mg Tablet, 2.5 MG PO BID, #60 TAB 1 Refill Prov:LISA VENEGAS 08/18/18 Reported Medications Zolpidem Tartrate* (Ambien*) 10 Mg Tablet, 10 MG PO QHS PRN for INSOMNIA, TAB 07/11/18 Clonazepam* (Clonazepam*) 0.5 Mg Tablet, 0.5 MG PO QHS PRN for ANXIETY, TAB 07/11/18 Discontinued Reported Medications Clonidine Hcl* (Clonidine Hcl*) 0.3 Mg Tablet, 0.3 MG PO BID, TAB 07/11/18 Losartan Potassium* (Losartan Potassium*) 25 Mg Tablet, 12.5 MG PO DAILY, TAB 07/11/18 Metoprolol Succinate* (Toprol XL*) 100 Mg Tab.sr.24h, 100 MG PO DAILY, #30 TAB 07/11/18 Amlodipine Besylate* (Norvasc*) 5 Mg Tablet, 5 MG PO DAILY, TAB 07/11/18 Medications Current Medications IV Flush (NS 3 ml) 3 ml PER PROTOCOL IV ; Start 08/14/18 at 16:00 Ondansetron HCl (Zofran Inj) 4 mg Q6H PRN IV NAUSEA/VOMITING Last administered on 08/16/18at 08:38; Admin Dose 4 MG; Start 08/14/18 at 16:00 Metoclopramide HCl (Reglan) 10 mg Q6H PRN IV NAUSEA/VOMITING Last administered on 08/16/18at 11:59; Admin Dose 10 MG; Start 08/14/18 at 16:00 Oxycodone/ Acetaminophen (Percocet (5/ 325)) 2 tab Q6H PRN PO .SEVERE PAIN 7-10 Last administered on 08/18/18at 01:02; Admin Dose 2 TAB; Start 08/14/18 at 16:00 Zolpidem Tartrate (Ambien) 10 mg HS PRN PO INSOMNIA Last administered on 08/17/18at 20:35; Admin Dose 10 MG; Start 08/14/18 at 22:30 Diltiazem HCl (Cardizem Iv) 5 mg Q1H PRN IV HR > 100; Start 08/15/18 at 12:00 Captopril (Capoten) 25 mg Q6 PRN PO ELEVATED BLOOD PRESSURE Last administered on 08/17/18at 05:58; Admin Dose 25 MG; Start 08/15/18 at 18:30 Morphine Sulfate (morphine) 1 mg Q1H PRN IV PAIN Last administered on 08/17/18at 00:59; Admin Dose 1 MG; Start 08/16/18 at 17:00 Dronedarone (Multaq) 400 mg BID WITH MEALS PO Last administered on 08/18/18at 09:40; Admin Dose 400 MG; Start 08/16/18 at 17:35 Famotidine (Pepcid) 20 mg DAILY PO Last administered on 08/18/18at 09:39; Admin Dose 20 MG; Start 08/17/18 at 09:00 Metoprolol Succinate (Toprol Xl) 100 mg BID PO Last administered on 08/18/18at 09:40; Admin Dose 100 MG; Start 08/17/18 at 09:00 Lisinopril (Zestril) 5 mg DAILY PO Last administered on 08/18/18at 09:40; Admin Dose 5 MG; Start 08/17/18 at 09:00 Apixaban (Eliquis) 2.5 mg BID PO ; Start 08/19/18 at 09:00 Allergies: Coded Allergies: No Known Allergy (Unverified , 08/14/18) Past Surgical History Past Surgical Hx: no surgical history Social History Alcohol Use: none Smoking Status: Never smoker Drug Use: none Exam/Review of Systems Exam Vitals Vital Signs Date Temp Pulse Resp B/P (MAP) Pulse Ox O2 O2 Flow FiO2 Time Delivery Rate 08/18/18 98.0 75 22 142/67 96 Nasal 3.0 11:45 (92) Cannula Intake and Output 08/17/18 08/17/18 08/18/18 1414:59 22:59 06:59 IntakeIntake Total 50 ml OutputOutput Total 550 ml BalanceBalance 50 ml -550 ml Exam PHYSICAL EXAMINATION: GENERAL: Alert & oriented x 3, in no acute distress SKIN: No lesions HEAD: Normocephalic, atraumatic, no tenderness. EYES: Pupils equal reactive to light and accommodation, no discharge. EARS/NOSE AND THROAT: Ears normal, nose normal, oropharynx normal, oral membranes well hydrated without lesions. NECK: Supple, no masses. CHEST: Inspection within normal limits. CARDIOVASCULAR: Heart: Systolic murmur, RRR RESPIRATORY: Lungs clear to auscultation GASTROINTESTINAL AND LIVER: Abdomen: Soft, non tenderness, non-distended, no hernias, no masses, no organomegaly, no ascites, no guarding, no rebound tenderness, normoactive bowel sounds. Rectal: Deferred. Results Result Diagram: 08/17/18 0449 08/18/18 0616 Results 24hrs Laboratory Tests Test 08/18/18 06:16 Sodium Level 140 Potassium Level 4.2 Chloride Level 99 Carbon Dioxide Level 33 H Anion Gap 8 Blood Urea Nitrogen 20 Creatinine 0.77 Est Glomerular Filtrat Rate mL/min Glucose Level 112 Calcium Level 9.2 Magnesium Level 2.1 Total Bilirubin 0.6 Direct Bilirubin 0.00 Indirect Bilirubin 0.6 Aspartate Amino Transf (AST/SGOT) 26 Alanine Aminotransferase (ALT/SGPT) 21 Alkaline Phosphatase 67 B-Type Natriuretic Peptide 1280 H Total Protein 7.0 Albumin 3.7 Globulin 3.30 H Albumin/Globulin Ratio 1.12 Medications Medication Current Medications IV Flush (NS 3 ml) 3 ml PER PROTOCOL IV ; Start 08/14/18 at 16:00 Ondansetron HCl (Zofran Inj) 4 mg Q6H PRN IV NAUSEA/VOMITING Last administered on 08/16/18at 08:38; Admin Dose 4 MG; Start 08/14/18 at 16:00 Metoclopramide HCl (Reglan) 10 mg Q6H PRN IV NAUSEA/VOMITING Last administered on 08/16/18at 11:59; Admin Dose 10 MG; Start 08/14/18 at 16:00 Oxycodone/ Acetaminophen (Percocet (5/ 325)) 2 tab Q6H PRN PO .SEVERE PAIN 7-10 Last administered on 08/18/18at 01:02; Admin Dose 2 TAB; Start 08/14/18 at 16:00 Zolpidem Tartrate (Ambien) 10 mg HS PRN PO INSOMNIA Last administered on 08/17/18at 20:35; Admin Dose 10 MG; Start 08/14/18 at 22:30 Diltiazem HCl (Cardizem Iv) 5 mg Q1H PRN IV HR > 100; Start 08/15/18 at 12:00 Captopril (Capoten) 25 mg Q6 PRN PO ELEVATED BLOOD PRESSURE Last administered on 08/17/18at 05:58; Admin Dose 25 MG; Start 08/15/18 at 18:30 Morphine Sulfate (morphine) 1 mg Q1H PRN IV PAIN Last administered on 08/17/18at 00:59; Admin Dose 1 MG; Start 08/16/18 at 17:00 Dronedarone (Multaq) 400 mg BID WITH MEALS PO Last administered on 08/18/18 09:40; Admin Dose 400 MG; Start 08/16/18 at 17:35 Famotidine (Pepcid) 20 mg DAILY PO Last administered on 08/18/18at 09:39; Admin Dose 20 MG; Start 08/17/18 at 09:00 Metoprolol Succinate (Toprol Xl) 100 mg BID PO Last administered on 08/18/18at 09:40; Admin Dose 100 MG; Start 08/17/18 at 09:00 Lisinopril (Zestril) 5 mg DAILY PO Last administered on 08/18/18at 09:40; Admin Dose 5 MG; Start 08/17/18 at 09:00 Apixaban (Eliquis) 2.5 mg BID PO ; Start 08/19/18 at 09:00 MASOOD TAYLOR Aug 18, 2018 14:26
[2018-08-18] MEDS ORDERED: POLYETHYLENE GLYCOL 17 GM PACKET PO SCH (14:30)
--- NOTE | 2018-08-18 15:43 | RADRPT ---
Vent Rate: 70 bpm RR Interval: 851 msec VT Interval: 178 msec QRS Duration: 108 msec QT Interval: 443 msec QTC Interval: 480 msec P-R-T [place]: [id number] - 23 - 66 degrees Atrial-paced complexes...other complexes also detected Electronically Signed By: Johnny Novoa
[2018-08-18 16:06] VITALS: BP 163/69; PULSE 73; RESP 22
[2018-08-18 19:07] VITALS: BP 143/71; PULSE 71; RESP 18
--- NOTE | 2018-08-18 19:31 | DS ---
Date/Time of Note Date/Time of Note DATE: 08/18/18 TIME: 19:27 Discharge Summary Admission/Discharge Info Admit Date/Time Aug 14, 2018 at 15:40 Discharge Date/Time August 18, 2018 Discharge Diagnosis 72 yo female with h/o hypertension and LBBB who presents with nausea syndrome complicated by syncope with pauses on telemetry Syncope with A FIb and pauses -Patient is status post pacemaker placement -Have resumed metoprolol, DC with Eliquis, Multitaq and lisinopril Nausea: -Possible secondary to arrhythmia versus a viral GI illness, CT head was negative for stroke -Has currently resolved -GI consultation appreciated Hypertension: - Hold home meds Patient Condition: Good Hospital Course Patient is a 72 yo female with h/o hypertension and LBBB who presents with nausea syndrome complicated by syncope with pauses on telemetry. Patient was seen by cardiology and ultimately required pacemaker placement, patient was resumed on metoprolol, Multitaq and Eliquis. Patient had been reporting decreased p.o. intake and nausea for the past 2 months but symptoms did resolve. Patient was seen by GI with no indication for further diagnostics. Patient was clear for DC per cardiology, on the day of discharge patient's vitals, labs and physical exam are stable. Home Meds Active Scripts Metoprolol Succinate* (Toprol XL*) 100 Mg Tab.sr.24h, 100 MG PO BID, #60 TAB Prov:LISA VENEGAS 08/18/18 Lisinopril* (Lisinopril*) 5 Mg Tablet, 5 MG PO DAILY, #60 TAB Prov:LISA VENEGAS 08/18/18 Dronedarone Hydrochloride* (Multaq*) 400 Mg Tablet, 400 MG PO BID WITH MEALS, #60 TAB Prov:LISA VENEGAS 08/18/18 Apixaban* (Eliquis*) 5 Mg Tablet, 2.5 MG PO BID, #60 TAB 1 Refill Prov:LISA VENEGAS 08/18/18 Reported Medications Zolpidem Tartrate* (Ambien*) 10 Mg Tablet, 10 MG PO QHS PRN for INSOMNIA, TAB 07/11/18 Clonazepam* (Clonazepam*) 0.5 Mg Tablet, 0.5 MG PO QHS PRN for ANXIETY, TAB 07/11/18 Discontinued Reported Medications Clonidine Hcl* (Clonidine Hcl*) 0.3 Mg Tablet, 0.3 MG PO BID, TAB 07/11/18 Losartan Potassium* (Losartan Potassium*) 25 Mg Tablet, 12.5 MG PO DAILY, TAB 07/11/18 Metoprolol Succinate* (Toprol XL*) 100 Mg Tab.sr.24h, 100 MG PO DAILY, #30 TAB 07/11/18 Amlodipine Besylate* (Norvasc*) 5 Mg Tablet, 5 MG PO DAILY, TAB 07/11/18 Follow-up Plan FOLLOW UP WITH YOUR PCP IN 1-2 WEEKS Primary Care Provider Not On Staff Doctor Time spent on discharge: > 30 minutes LISA VENEGAS Aug 18, 2018 19:31
[2018-08-19] MEDS ORDERED: APIXABAN 5 MG TABLET PO SCH (09:00)
== END 2018-08-18 20:32 | disposition home or self-care (01) | DRG 244 ==
LOC: E/R 12:35 → SUATTDRO 14:52 → ICU 15:40 → TEL 08-17 08:56
PROVIDERS: ADMIT Internal Medicine; ATTEND Internal Medicine
PROC: 02HK3JZ Insertion of Pacemaker Lead into Right Ventricle, Percutaneous Approach (ICD-10-PCS; 2018-08-16)
PROC: 02H63JZ Insertion of Pacemaker Lead into Right Atrium, Percutaneous Approach (ICD-10-PCS; 2018-08-16)
PROC: 0JH606Z Insertion of Pacemaker, Dual Chamber into Chest Subcutaneous Tissue and Fascia, Open Approach (ICD-10-PCS; principal; 2018-08-16 15:00)
DX: I44.7 Left bundle-branch block, unspecified (principal); R55 Syncope and collapse; I49.5 Sick sinus syndrome; I48.0 Paroxysmal atrial fibrillation; I10 Essential (primary) hypertension; F17.200 Nicotine dependence, unspecified, uncomplicated; E78.5 Hyperlipidemia, unspecified; R11.2 Nausea with vomiting, unspecified; K59.00 Constipation, unspecified
CPT/HCPCS: 36415; 70450; 71045; 80048; 80053; 80162; 81003; 82550; 82553; 83036; 83735; 83880; 84100; 84439; 84443; 84484; 85025; 85610; 85730; 87081; 93005; 93306; 96361; 96374; 97161; 97167; C1785; C1898; J0690; J1644; J1940; J2270; J2405; J2765; J3475; J7030; Q9967

== ENCOUNTER 2018-12-16 12:09 | Observation (INO) | payer MEDICARE, OTHER ==
[~2018-12-16] VITALS: Ht 157.5 cm; Wt 60.0 kg
[~2018-12-16 12:09] MED LIST changes: +ACET-141 PO; -AMLO5TAB4 PO; +APIX2.5T PO; +APIX5TAB PO; +ASPI-817 PO; +ASPI-903 PO; +CHOL500062 PO; +CLON0.2T5 PO; -CLON0.3T PO; -CLON0.5T14 PO; +DEXL60CA2 PO; +DRON400T2 PO; +ERGO500013 PO; +FAMO-96 PO; +FER325 PO; +HYDR-3671 PO; +HYDR-3672 PO; +LORA1TAB PO; +LOSA1TAB9 PO; -LOSA25TA12 PO; +LOSA50TA14 PO; +NEPH PO; +ONDA4TAB8 PO; +SUCR1TAB56 PO; +ZOC10 PO
[2018-12-16] MEDS ORDERED: SOD CHLORIDE 0.9% 500 ML IV STA (12:14)
[2018-12-16] MEDS ORDERED: DILTIAZEM 25 MG INJ IV ONE (12:30)
[2018-12-16] MEDS ORDERED: ACETAMINOPHEN 325 MG TAB PO PRN ×2 (14:00→16:00)
[2018-12-16] MEDS ORDERED: ONDANSETRON 4 MG INJ IV PRN ×2 (14:00→16:00)
[2018-12-16] MEDS ORDERED: BISACODYL (EC) 5 MG TAB PO PRN (16:00)
[2018-12-16] MEDS ORDERED: NACL 0.9% 3 ML SYG IV SCH (16:00)
[2018-12-16] MEDS ORDERED: morphine 2 MG INJ IV PRN (16:00)
[2018-12-16] MEDS ORDERED: DOCUSATE SODIUM 100 MG CAP PO PRN (16:00)
[2018-12-16] MEDS ORDERED: BISACODYL 10 MG SUPP PR PRN (16:00)
[2018-12-16 16:29] VITALS: BP 137/63; PULSE 89
[2018-12-16 17:37] VITALS: Ht 157.5 cm; Wt 60.0 kg
[2018-12-16 20:22] VITALS: BP 130/60; PULSE 102; RESP 18
[2018-12-16] MEDS: FAMOTIDINE 20 MG TAB PO SCH (20:51)
[2018-12-16] MEDS: METOPROLOL (XL) 100 MG TAB PO SCH (20:52)
[2018-12-16] MEDS: HYDROCODONE/APAP (5/325) TAB PO PRN (20:52)
[2018-12-17 00:10] VITALS: BP 129/61; PULSE 76; RESP 18
[2018-12-17] MEDS ORDERED: ZOLPIDEM 5 MG TAB PO PRN (00:30)
[2018-12-17] MEDS: HYDROCODONE/APAP (5/325) TAB PO PRN (03:52)
[2018-12-17 04:33] VITALS: BP 150/67; PULSE 89; RESP 16
[2018-12-17 08:05] VITALS: BP 141/64; PULSE 90; RESP 19
[2018-12-17] MEDS: FAMOTIDINE 20 MG TAB PO SCH (08:28)
[2018-12-17] MEDS: METOPROLOL (XL) 100 MG TAB PO SCH (08:29)
[2018-12-17] MEDS ORDERED: ENOXAPARIN 40 MG/0.4 ML SYG SC SCH (09:00)
[2018-12-17] MEDS ORDERED: ASPIRIN 81 MG TAB PO SCH (09:00)
[2018-12-17] MEDS ORDERED: MULTIVIT/CA CARB/B CMPLX/FA TAB PO SCH (09:00)
[2018-12-17] MEDS ORDERED: DRONEDARONE HYDROCHLORIDE 400 MG TAB PO SCH (11:00)
[2018-12-17] MEDS ORDERED: APIXABAN 2.5 MG TABLET PO SCH (11:00)
[2018-12-17 11:01] VITALS: BP 139/63; PULSE 77; RESP 18
== END 2018-12-17 15:15 | disposition home or self-care (01) ==
LOC: E/R 12:09 → 6WM 13:33
PROVIDERS: ADMIT Internal Medicine; ATTEND Internal Medicine
DX: I48.0 Paroxysmal atrial fibrillation (principal); I10 Essential (primary) hypertension; I25.10 Atherosclerotic heart disease of native coronary artery without angina pectoris; E78.5 Hyperlipidemia, unspecified; I49.5 Sick sinus syndrome; Z95.0 Presence of cardiac pacemaker; K57.30 Diverticulosis of large intestine without perforation or abscess without bleeding; Z79.01 Long term (current) use of anticoagulants; Z79.899 Other long term (current) drug therapy; R06.02 Shortness of breath
CPT/HCPCS: 36415; 71045; 80048; 80053; 80061; 80076; 82550; 82553; 83036; 83735; 83880; 84100; 84443; 84484; 85025; 85610; 93005; 93880; 96374; 99285; G0378; J1650; J2405; J7040